=== PATIENT | female | born 1985 | race Caucasian/White ===

== ENCOUNTER → 2017-09-16 12:01 | Outpatient (CLI) | payer OTHER, SELFPAY ==
--- NOTE | 2017-09-16 12:06 | CT_ITS ---
CT abdomen pelvis wo con CLINICAL INDICATION: ITS.REASON: LLQ PAIN, HEMATURIA ORDERING PHYSICIAN: Nicholas An MD PATIENT AGE: 32 years COMPARISON: 11/26/2013 TECHNIQUE: Axial images obtained with sagittal and coronal reformats. PROCEDURE: Oral Contrast: None IV Contrast: None . FINDINGS: Patchy parenchymal density noted in the right middle lobe nonspecific. Prior cholecystectomy without ductal dilatation. The liver, spleen, adrenal glands, and pancreas have an unremarkable unenhanced CT appearance. There are bilateral nonobstructing renal calculi measuring up to 4 mm in the lower pole on the left and 3 mm in the lower pole on the right. No ureteral calculi or hydronephrosis. There are scattered small lymph nodes in the retroperitoneum and mesentery's nonspecific. No intestinal obstruction or free air. Prior appendectomy. No evidence of diverticulitis. No pelvic mass, abnormal fluid collection, or focal pelvic inflammatory change evident. No acute bony anomalies. IMPRESSION: 1. Nonobstructing bilateral renal calculi. 2. No acute finding in the abdomen or pelvis. 3. Nonspecific parenchymal opacity in the right middle lobe which could be due to an area of atelectasis or infiltrate versus chronic change
[2017-09-16 13:16] LABS: Free Thyroxine Index 3.1 ug/dL (5.93-13.13); T4 (Thyroxine) 10.7 ug/dl (4.7-13.3); Thyroid Stimulating Hormone 1.84 uIU/ml (0.358-3.740); Triiodothryronine (T3) Uptake 29 % (31-39)
== END ==
PROVIDERS: Nurse Practitioner Obstetrics & Gynecology; PCP Internal Medicine Adolescent Medicine; Visit Provider Internal Medicine Adolescent Medicine
DX: R10.32 Left lower quadrant pain (principal); R31.29 Other microscopic hematuria; R53.82 Chronic fatigue, unspecified; R63.5 Abnormal weight gain
CPT/HCPCS: 74176; 84436; 84443; 84479; 87086

== ENCOUNTER → 2017-09-27 08:14 | Outpatient (CLI) | payer OTHER, SELFPAY ==
[2017-09-27 09:01] LABS: Basophils % 0.3 % (0.1-2.0); Eosinophils # 0.1 K/mm3 (0.0-0.4); Eosinophils % 1.7 % (0.1-12.0); Hematocrit 47.6 % (37.0-47.0); Hemoglobin 15.8 g/dL (12.2-16.2); Lymphocytes # 1.9 K/mm3 (0.7-4.5); Lymphocytes % 26.1 K/mm3 (10-50); Mean Corpuscular HGB Conc 33.1 g/dL (31.8-35.4); Mean Corpuscular Hemoglobin 28.1 pg (27.0-31.2); Mean Corpuscular Volume 84.7 fl (81-99); Mean Platelet Volume 8.2 fl (7.4-10.4); Monocytes # 0.3 K/mm3 (0.1-1.0); Monocytes % 4.2 % (1.7-9.3); Neutrophils # 4.8 K/mm3 (1.8-7.8); Neutrophils % 67.7 % (37.0-80.0); Platelet Count 301 K/mm3 (142-424); Red Blood Count 5.62 M/mm3 (4.20-5.40); Red Cell Distribution Width 13.6 % (11.5-17.5); White Blood Count 7.1 K/mm3 (4.8-10.8)
[2017-09-27 12:54] LABS: Alanine Aminotransferase 24 U/L (12-78); Albumin Level 3.8 gm/dL (3.4-5.0); Albumin/Globulin Ratio 1.1 (1.1-1.8); Alkaline Phosphatase 69 U/L (46-116); Anion Gap 11.6 mEq/L (5-15); Aspartate Amino Transferase 14 U/L (15-37); Bilirubin,Total 0.4 mg/dL (0.2-1.0); Blood Urea Nitrogen 11 mg/dL (7-18); Calcium 9.6 mg/dL (8.5-10.1); Carbon Dioxide 28 mmol/L (21.0-32.0); Chloride 104 mmol/L (98-107); Creatinine,Serum 0.76 mg/dL (0.55-1.02); Estimated Glomerular Filt Rate 87 ml/min (>60); GFR (African American) 105 ML/MIN (>60); Globulin 3.4 gm/dl (1.3-3.2); Glucose 99 mg/dL (74-106); Potassium 4.6 mmoL/L (3.5-5.1); Sodium 139 mmol/L (136-145); Total Protein,Serum 7.2 gm/dL (6.4-8.2)
[2017-09-28 07:19] LABS: DHEA-Sulfate 57.4 ug/dL (84.8-378.0); Testosterone,Total 21 ng/dL (8-48)
[2017-09-29 08:50] LABS: LH 4.4 mIU/mL (.)
== END ==
PROVIDERS: PCP Internal Medicine Adolescent Medicine; Visit Provider Internal Medicine Adolescent Medicine
DX: R53.83 Other fatigue (principal)
CPT/HCPCS: 36415; 80053; 82626; 83001; 83002; 83498; 84403; 85025

== ENCOUNTER → 2017-10-19 10:37 | Outpatient (CLI) | payer OTHER, SELFPAY ==
--- NOTE | 2017-10-19 | NVE_ITS ---
Venous Exam Indications: 729.5 Pain in limb. IMPRESSIONS No evidence of deep or superficial vein thrombosis involving the left lower extremity Left lower extremity venous duplex evaluation. Doppler flow study including spectral analysis, color and chen scale imaging. Location: Vascular laboratory. Patient status: Inpatient. Tables: Venous flow and imaging: + +-------+ + Location Overall Flow properties + +-------+ + Left common femoral Patent Normal phasicity; spontaneous; normal augmentation; compressible + +-------+ + Left saphenofemoral junction Patent Compressible + +-------+ + Left profunda femoral Patent Compressible + +-------+ + Left femoral Patent Normal phasicity; spontaneous; normal augmentation; compressible + +-------+ + Left greater saphenous Patent Normal phasicity; spontaneous; normal augmentation; compressible + +-------+ + Left popliteal Patent Normal phasicity; spontaneous; normal augmentation; compressible + +-------+ + Left posterior tibial Patent Compressible + +-------+ + Left peroneal Patent Compressible + +-------+ + Left gastrocnemius Patent Compressible + +-------+ + Left soleal Patent Compressible + +-------+ + (Report amended ) Electronically signed by: Candelario Bonilla [id number]
== END ==
PROVIDERS: PCP Internal Medicine Adolescent Medicine; Visit Provider Internal Medicine Adolescent Medicine
DX: M79.605 Pain in left leg (principal)
CPT/HCPCS: 93971

== ENCOUNTER → 2019-08-09 11:10 | Outpatient (CLI) | payer OTHER, SELFPAY ==
[2019-08-09 11:34] LABS: Monoscreen (Rapid) Negative (Negative)
== END ==
PROVIDERS: Visit Provider Nurse Practitioner
DX: B27.90 Infectious mononucleosis, unspecified without complication (principal)
CPT/HCPCS: 36415; 86318

== ENCOUNTER → 2019-10-12 08:53 | Outpatient (CLI) | payer OTHER, SELFPAY ==
--- NOTE | 2019-10-12 08:53 | MM_ITS ---
PROCEDURE: MM DIG SCREENING MAMM BI W/CAD CLINICAL INDICATION: baseling mammogram There is a history of breast cancer in the patient's paternal grandmother and maternal grandmother both after menopause. COMPARISON: None, this is baseline screening exam TECHNIQUE: Standard CC and MLO images and 3D Tomosynthesis was obtained. R2 CAD reviewed. FINDINGS: There is a diffusely dense and heterogenic parenchymal pattern somewhat lessening the sensitivity of mammography. Findings are bilateral and symmetrical. Ortiz images are most helpful in this type of dense breast parenchyma and I see no suspicious abnormality in either breast. There are no suspicious microcalcifications. IMPRESSION: Diffusely dense parenchymal pattern with no suspicious lesions seen BI-RAD Category: 1 Negative FOLLOW-UP: 1YR 1 Year Follow-up in view of the family history of breast cancer (A letter has been sent to the patient regarding results of the study.) Dictated by: Dr. Lionel Giron MD 10/15/2019 11:[address] Lionel Giron MD in [place] 10/15/2019 11:21
== END ==
PROVIDERS: PCP Internal Medicine Adolescent Medicine; Visit Provider Nurse Practitioner Obstetrics & Gynecology
DX: Z12.31 Encounter for screening mammogram for malignant neoplasm of breast (principal); Z80.3 Family history of malignant neoplasm of breast
CPT/HCPCS: 77063; 77067

== ENCOUNTER → 2020-02-15 08:21 | Outpatient (CLI) | payer OTHER, SELFPAY ==
[2020-02-15 09:21] LABS: Hemoglobin A1C 5.5 % (4.0-6.0)
[2020-02-15 09:46] LABS: Alanine Aminotransferase 20 U/L (12-78); Albumin Level 4.3 g/dl (3.5-5.0); Albumin/Globulin Ratio 1.8 (1.1-1.8); Alkaline Phosphatase 66 U/L (38-126); Anion Gap 10.1 mEq/L (5-15); Aspartate Amino Transferase 23 U/L (14-36); Bilirubin,Total 0.6 mg/dl (0.2-1.3); Blood Urea Nitrogen 12 mg/dl (7-17); Calcium 9.8 mg/dl (8.4-10.2); Carbon Dioxide 31 mmol/L (22.0-30.0); Chloride 102 mmol/L (98-107); Chol/HDL Ratio 3.6 (1-3.5); Cholesterol 190 mg/dl (140-200); Estimated Glomerular Filt Rate 95 ml/min (>60); GFR (African American) 115 ML/MIN (>60); Globulin 2.4 g/dL (1.3-3.2); Glucose 112 mg/dl (74-100); HDL Cholesterol 53 mg/dl (40-60); Magnesium 1.9 mg/dl (1.6-2.3); Potassium 4.1 mmoL/L (3.5-5.1); Sodium 139 mmol/L (136-145); Total Protein,Serum 6.7 g/dl (6.3-8.2); Triglycerides 109 mg/dl (30-150); VLDL Cholesterol 22 mg/dL (0-40)
[2020-02-15 09:57] LABS: Direct LDL Cholesterol 122.06 mg/dL (100-129)
[2020-02-15 10:04] LABS: Free Thyroxine Index 1.9 ug/dL (5.93-13.13); T4 (Thyroxine) 5.6 ug/dl (5.53-11.0); Triiodothryronine (T3) Uptake 34 % (23.5-40.5)
[2020-02-15 10:17] LABS: Thyroid Stimulating Hormone 1.54 uIU/mL (0.465-4.68)
[2020-02-16 09:28] LABS: Vitamin B12 592 pg/mL (232-1245)
== END ==
PROVIDERS: Visit Provider Internal Medicine Adolescent Medicine
DX: E78.5 Hyperlipidemia, unspecified (principal); K58.1 Irritable bowel syndrome with constipation; R73.9 Hyperglycemia, unspecified
CPT/HCPCS: 36415; 80053; 80061; 82607; 83036; 83735; 84436; 84443; 84479

== ENCOUNTER → 2020-04-07 14:42 | Outpatient (CLI) | payer OTHER, SELFPAY ==
--- NOTE | 2020-04-07 14:46 | CT_ITS ---
PROCEDURE: CT ABDOMEN PELVIS WO CON CLINICAL INDICATION: HEMATURIA, UNSPECIFIED TYPE Lower abdominal pain COMPARISON: CT ABDOMEN PELVIS W CON from 04/28/2019 TECHNIQUE: Axial images obtained with sagittal and coronal reformats. All CT scans at the facility use one or more dose reduction, viz: automated exposure control, ma/kV adjustment per patient size (including targeted exams where dose is matched to indication, i.e. head), or iterative reconstruction technique. FINDINGS: LOWER THORAX: There are mild atelectatic or fibrotic changes in the right middle lobe ABDOMEN & PELVIS: The liver has an unremarkable unenhanced appearance. There has been a prior cholecystectomy. The spleen, adrenal glands, and pancreas have an unremarkable appearance. There is some minimal increased density of the peripancreatic fat at the region of the head of the pancreas. This however is not significantly changed and may represent sequela from chronic inflammation. There are few small lymph nodes in the mesenteric axis. There are multiple bilateral renal calculi measuring up to 3 mm in the lower pole on the left and 3 mm in the mid polar region on the right. A 3 mm stone is present in the distal right ureter just proximal to the UVJ. There is only minimal ectasia of the right ureter. No ureteral calculi evident on the left. Given history of prior appendectomy. There is an IUD in place. No pelvic mass or abnormal fluid collection. No acute bony anomalies IMPRESSION: 3 mm right distal ureteral stone with minimal ectasia of the right renal collecting system. Bilateral nephrolithiasis Dictated by: Candelario Bonilla MD 04/07/2020 16:17 Electronically signed by Candelario Bonilla MD in [place] 04/07/2020 16:17
== END ==
PROVIDERS: PCP Internal Medicine Adolescent Medicine; Visit Provider Nurse Practitioner Family
DX: R31.9 Hematuria, unspecified (principal)
CPT/HCPCS: 74176

== ENCOUNTER → 2020-04-09 13:02 | Outpatient (CLI) | payer OTHER, SELFPAY ==
[2020-04-29 09:38] LABS: Size 3X3
[2020-04-29 09:39] LABS: Composition PERCENTAGE
[2020-05-02 18:55] LABS: Specimen Type NOT PROVIDED
[2020-05-02 18:56] LABS: Ca oxalate dihydrate 10
[2020-05-02 19:00] LABS: Photo TO FOLLOW
== END ==
PROVIDERS: Visit Provider Urology
DX: N20.0 Calculus of kidney (principal)
CPT/HCPCS: 82370

== ENCOUNTER 2020-05-09 20:48 | Emergency (ER) | payer OTHER, SELFPAY ==
[2020-05-09 20:48] VITALS: BP 153/90; PULSE 80; RESP 17; O2SAT 98; BMI 28.1
--- NOTE | 2020-05-09 20:56 | [facility].EDTRAUMA ---
ED Disposition Clinical Impression: Liver laceration Qualifiers: Encounter type: initial encounter Qualified Code(s): S36.113A - Laceration of liver, unspecified degree, initial encounter Ribs, multiple fractures Qualifiers: Encounter type: initial encounter Fracture type: closed Laterality: right Qualified Code(s): S22.41XA - Multiple fractures of ribs, right side, initial encounter for closed fracture Left wrist fracture Qualifiers: Encounter type: initial encounter Fracture type: closed Qualified Code(s): S62.102A - Fracture of unspecified carpal bone, left wrist, initial encounter for closed fracture Disposition: Xfer Short-Term Hosp Condition on Discharge: Fair Referrals: Provider,Referral, MD [Primary Care Provider] - Forms: Transfer Record - ED - Critical Care Critical Care Time: No Attestation: On 05/09/20, the high probability of a clinically significant, sudden or life threatening deterioration of the following system(s) required my full and direct attention, intervention and personal management. The time I documented below is in addition to time spent performing reported procedures but includes the following listed in this critical care notation. Medical Decision Making - Medical Records Medical records reviewed: Yes: I reviewed the patient's medical records. - Gagandeep Inquiry Pt receiving controlled substance: Yes Gagandeep was queried for this patient: Yes Reference #:: [id number] Risks and benefits of using a controlled substance: were not discussed with pt by me Comment: 0 rxs. Vital Signs: 05/09/20 20:48 05/09/20 21:27 05/09/20 23:40 Temperature Temperature Source Pulse Rate Pulse Rate [Left Radial] 80 71 69 Respiratory Rate 17 18 16 Blood Pressure Blood Pressure [Right Arm] 153/90 H 134/86 133/80 Blood Pressure Mean [Right Arm] 111 102 97 Blood Pressure Source Blood Pressure Source [Right Arm] Automatic Cuff Blood Pressure Position Blood Pressure Position [Right Arm] Sitting 02 Sat by Pulse Oximetry 98 98 99 Oxygen Delivery Method Room Air Room Air 05/09/20 23:56 Temperature 98.2 F Temperature Source Oral Pulse Rate 87 Pulse Rate [Left Radial] Respiratory Rate 16 Blood Pressure 133/80 Blood Pressure [Right Arm] Blood Pressure Mean [Right Arm] Blood Pressure Source Automatic Cuff Blood Pressure Source [Right Arm] Blood Pressure Position Sitting Blood Pressure Position [Right Arm] 02 Sat by Pulse Oximetry Oxygen Delivery Method Room Air - Lab Data Lab results reviewed: Yes: I reviewed the patient's lab results. Lab Results 05/09/20 21:10: WBC 9.9, RBC 4.84, Hgb 14.5, Hct 41.3, MCV 85.4, MCH 30.0, MCHC 35.1, RDW 13.6, Plt Count 234, MPV 9.2, Neut % (Auto) 82.5 H, Lymph % (Auto) 12.5, Wright % (Auto) 3.7, Eos % (Auto) 1.0, Baso % (Auto) 0.3, Neut # (Auto) 8.2 H, Lymph # (Auto) 1.2, Wright # (Auto) 0.4, Eos # (Auto) 0.1, Baso # (Auto) 0.0 05/09/20 21:10: Sodium 139, Potassium 4.2, Chloride 105, Carbon Dioxide 26, Anion Gap 12.2, BUN 15, Creatinine 0.70, Estimated Creat Clear 142, Estimated GFR 94, Est GFR ( Amer) 114, Glucose 123 H, Calcium 10.0, Total Bilirubin 0.4, AST 327 H*, ALT 248 H, Alkaline Phosphatase 68, Total Protein 7.0, Albumin 4.4, Globulin 2.6, Albumin/Globulin Ratio 1.7 05/09/20 21:10: Serum HCG, Qual Negative Result diagrams: 05/09/20 21:10 05/09/20 21:10 Orders (Tests/Meds): ED MEDICATIONS Discontinued Medications Generic Name Dose Route Start Last Admin Trade Name Johnq PRN Reason Stop Dose Admin Sodium Chloride 1,000 mls @ 999 mls/hr 05/09/20 23:45 Sod Chlor 0.9% 1000ml Bag IV 05/10/20 00:45 .Q1H1M JACQUI Lactated Ringer's 1,000 mls @ 999 mls/hr 05/09/20 23:45 Lactated Ringer's 1000 Ml Bag IV 05/10/20 00:45 .Q1H1M JACQUI Ioversol 100 ml 05/09/20 23:26 05/09/20 23:27 Rad-Optiray 350 100ml Vial IV 05/09/20 23:27 100 ml ONCE ONE Administration Protocol Morphine Sulfate 4 mg
--- NOTE | 2020-05-09 20:57 | CT_ITS ---
PROCEDURE: CT ABDOMEN PELVIS W CON CLINICAL INDICATION: trauma Blunt trauma COMPARISON: CT CT ABDOMEN PELVIS WO CON from 04/07/[address] ANGIO CHEST from 05/09/2020 TECHNIQUE: IV Contrast: 75ML OPTIRAY 350 Oral Contrast None Axial images obtained with sagittal and coronal reformats. All CT scans at the facility use one or more dose reduction, viz: automated exposure control, ma/kV adjustment per patient size (including targeted exams where dose is matched to indication, i.e. head), or iterative reconstruction technique. FINDINGS: There is a focal hypoattenuation in the posterior lateral right hepatic lobe peripherally at 1.5 cm with an additional subtle hypoattenuation anterior to this at 1 cm and an additional area of decreased attenuation within the anterior segment of the right hepatic lobe at 2.3 cm. These areas are subtle but may represent hepatic lacerations. There is a minimal amount of perihepatic fluid. Minimal amount of fluid is present in the right pericolic gutter. There has been a prior cholecystectomy with biliary ectasia noted.. The spleen, adrenal glands, and pancreas are unremarkable. There are nonobstructing bilateral renal calculi which are noted on the unenhanced CT scan of the lumbar spine there are obscured by contrast on this exam. No hydronephrosis. There are small retroperitoneal lymph nodes. No intestinal obstruction or free air. There is a small umbilical hernia containing fat. There is a mild amount of retained colonic feces. There is given history of appendectomy. There is an IUD in place. There is a small left ovarian cyst with enhancing rim with a cyst measuring 1.3 cm. There are fractures of the right 10th and 11th ribs with associated soft tissue contusion along the lower back on the right IMPRESSION: 1. Suspected right hepatic lacerations with minimal perihepatic fluid. 2. Right 10th and 11th rib fractures with associated contusion Dictated by: Candelario Bonilla MD 05/10/2020 07:30 Candelario Bonilla MD in [place] 05/10/2020 07:30
--- NOTE | 2020-05-09 20:57 | CT_ITS ---
PROCEDURE: CT ANGIO CHEST CLINCIAL INDICATION: trauma Blunt trauma with injury and pain, contusion/abrasion or hematoma following injury COMPARISON: [facility] CT angio chest from 03/12/2018 TECHNIQUE: IV Contrast: 70ML OPTIRAY 350 Axial images obtained with sagittal and coronal reformats. All CT scans at the facility use one or more dose reduction, viz: automated exposure control, ma/kV adjustment per patient size (including targeted exams where dose is matched to indication, i.e. head), or iterative reconstruction technique. FINDINGS: HEART AND MEDIASTINAL STRUCTURES: Unremarkable. LUNGS AND PLEURAL SPACES: There are atelectatic changes in the lower lobes and right middle lobe. There are scattered small calcified granulomas in the right lower lobe. Small nodules may be obscured with the atelectasis. No evidence of pneumothorax. BONY STRUCTURES: There is a mildly displaced right 10th rib fracture posteriorly and a nondisplaced 11th rib fracture posteriorly UPPER ABDOMEN: See abdomen report ADDITIONAL FINDINGS: Soft tissue contusion noted in the lower chest posteriorly on the right IMPRESSION: Right 10th and 11th rib fractures posteriorly with overlying soft tissue contusion and bilateral atelectatic changes. Dictated by: Candelario Bonilla MD 05/10/2020 07:06 Candelario Bonilla MD in [place] 05/10/2020 07:06
--- NOTE | 2020-05-09 20:57 | CT_ITS ---
PROCEDURE: CT LUMBAR SPINE WO CON CLINICAL HISTORY: trauma Posttraumatic pain, back pain following injury COMPARISON: No exams were available for comparison TECHNIQUE: Axial images obtained with sagittal and coronal reformats. All CT scans at the facility use one or more dose reduction, viz: automated exposure control, ma/kV adjustment per patient size (including targeted exams where dose is matched to indication, i.e. head), or iterative reconstruction technique. FINDINGS: Normal alignment. No fracture or dislocation. The disc spaces are well preserved. No significant degenerative change. No lytic lesions apparent. There is some sclerosis of the SI joints on both sides inferiorly change. Multiple bilateral nonobstructing renal calculi. There is an IUD in place a. there are numerous small retroperitoneal lymph nodes. IMPRESSION: No acute fracture. Dictated by: Candelario Bonilla MD 05/10/2020 07:21 Candelario Bonilla MD in [place] 05/10/2020 07:21
--- NOTE | 2020-05-09 20:57 | CT_ITS ---
PROCEDURE: CT CERVICAL SPINE WO CON CLINICAL INDICATION: trauma Neck injury with pain, contusion/abrasion or hematoma, cervical sprain/strain the COMPARISON: CT CT ANGIO CHEST from 05/09/2020 TECHNIQUE: Axial images obtained with sagittal and coronal reformats. All CT scans at the facility use one or more dose reduction, viz: automated exposure control, ma/kV adjustment per patient size (including targeted exams where dose is matched to indication, i.e. head), or iterative reconstruction technique. Axial spiral CT scanning performed of the cervical spine beginning at the base of the skull and continuing to the upper T-spine. 3-D multiplanar reconstruction with 3-D manipulation of volumetric data set in image rendering was completed by the radiologist and/or technologist with the supervision of the radiologist on independent workstation. FINDINGS: No fracture nor subluxation is evident. Normal prevertebral soft tissues. Facets, neural foramen and vertebral bodies intact and unremarkable. Normal C1/C2 relationships. Airspace opacities in the apices right greater than left which may be due to dependent changes or atelectasis not duplicated on the chest CT. There is straightening/reversal of the normal lordosis which may be due to patient positioning or muscle spasm.. There is some scattered small cervical lymph nodes which are nonspecific. IMPRESSION: Cervical spine intact with no fracture nor subluxation. Dictated by: Candelario Bonilla MD 05/10/2020 07:10 Candelario Bonilla MD in [place] 05/10/2020 07:10
--- NOTE | 2020-05-09 20:57 | CT_ITS ---
PROCEDURE: CT THORACIC SPINE WO CON CLINICAL HISTORY: trauma Posttraumatic pain, central back pain COMPARISON: CT AGCHEST CT angio chest from 03/12/[address] ANGIO CHEST from 05/09/2020 TECHNIQUE: Axial images obtained with sagittal and coronal reformats. All CT scans at the facility use one or more dose reduction, viz: automated exposure control, ma/kV adjustment per patient size (including targeted exams where dose is matched to indication, i.e. head), or iterative reconstruction technique. FINDINGS: There is normal alignment. No acute fracture or dislocation is evident. There is minimal wedge contour of T6 which is chronic unchanged from an older chest CT of 03/12/2018. T1-T2 and T3 are not included on this study however, those images were included on the chest CT of the same setting and have an unremarkable appearance. There is a nondisplaced fracture of T11 and a mildly displaced fracture of T10. Atelectatic changes are present in the dependent portions of the lungs. Nonobstructive bilateral nephrolithiasis. IMPRESSION: No acute thoracic spine fracture. Right 11th and 10th rib fractures Dictated by: Candelario Bonilla MD 05/10/2020 07:16 Candelario Bonilla MD in [place] 05/10/2020 07:16
--- NOTE | 2020-05-09 20:58 | XR_ITS ---
PROCEDURE: XR WRIST LT MIN 3V CLINICAL INDICATION: trauma Posttraumatic pain COMPARISON: No exams were available for comparison FINDINGS: There is a comminuted inverted T shape fracture involving the distal radius with a transverse component 1 cm proximal to the articular surface and longitudinal component extending through the central aspect of the distal radius. There is a 7 mm lateral displacement of the lateral fracture fragment. There is dorsal displacement also of the fracture fragments by 5 mm. There is minimal dorsal inclination of the distal fracture fragments. There is a small avulsion fracture involving the tip of the ulnar styloid IMPRESSION: Comminuted distal radial fracture mildly displaced as described above with tiny avulsion fracture of the ulnar styloid Dictated by: Candelario Bonilla MD 05/10/2020 06:29 Candelario Bonilla MD in [place] 05/10/2020 06:29
--- NOTE | 2020-05-09 20:58 | XR_ITS ---
PROCEDURE: XR CHEST AP CLINICAL HISTORY: traum Posttraumatic pain, trauma protocol COMPARISON: CR CXR CHEST(2 VIEWS-NOT PORTABLE) from 12/13/[address] ANGIO CHEST from 05/09/2020 FINDINGS: There is mild cardiomegaly without failure. The lungs are clear without infiltrates, suspicious nodules, or pleural effusions. A faint curvilinear density is noted in the left upper lobe and may be due to artifact with something upon the patient. No acute bony finding. IMPRESSION: Mild cardiomegaly otherwise negative Dictated by: Candelario Bonilla MD 05/10/2020 06:32 Candelario Bonilla MD in [place] 05/10/2020 06:32
--- NOTE | 2020-05-09 20:58 | XR_ITS ---
PROCEDURE: XR PELVIS 1-2V CLINICAL INDICATION: trauma Posttraumatic pain, trauma protocol COMPARISON: No exams were available for comparison TECHNIQUE: XR Pelvis AP View FINDINGS: No fracture or dislocation is evident. No significant degenerative change. Contrast is present in the urinary bladder and ureters from the recent CT. No evidence of contrast extravasation. There is an IUD in place. Small opacity noted in the right lower quadrant and may be due to overlying artifact. IMPRESSION: No acute findings. Dictated by: Candelario Bonilla MD 05/10/2020 06:33 Candelario Bonilla MD in [place] 05/10/2020 06:33
--- NOTE | 2020-05-09 20:59 | XR_ITS ---
PROCEDURE: XR SHOULDER RT MIN 2V CLINICAL INDICATION: trauma Posttraumatic pain COMPARISON: No exams were available for comparison FINDINGS: No fracture or dislocation. No lytic or blastic change. There is normal mineralization. The joint spaces are well-preserved. No significant degenerative/arthritic changes. No erosive changes evident. Other findings:None. IMPRESSION: No acute findings. Dictated by: Candelario Bonilla MD 05/10/2020 06:27 Candelario Bonilla MD in [place] 05/10/2020 06:27
[2020-05-09 21:17] LABS: Basophils % 0.3 % (0.1-2.0); Eosinophils # 0.1 K/mm3 (0.0-0.4); Hematocrit 41.3 % (37.0-47.0); Hemoglobin 14.5 g/dL (12.2-16.2); Lymphocytes # 1.2 K/mm3 (0.7-4.5); Lymphocytes % 12.5 % (10-50); Mean Corpuscular HGB Conc 35.1 g/dL (31.8-35.4); Mean Corpuscular Volume 85.4 fl (81-99); Mean Platelet Volume 9.2 fl (7.4-10.4); Monocytes # 0.4 K/mm3 (0.1-1.0); Monocytes % 3.7 % (1.7-9.3); Neutrophils # 8.2 K/mm3 (1.8-7.8); Neutrophils % 82.5 % (37.0-80.0); Platelet Count 234 K/mm3 (142-424); Red Blood Count 4.84 M/mm3 (4.20-5.40); Red Cell Distribution Width 13.6 % (11.5-17.5); White Blood Count 9.9 K/mm3 (4.8-10.8)
[2020-05-09 21:21] LABS: Chloride 105 mmol/L (98-107); Potassium 4.2 mmoL/L (3.5-5.1); Sodium 139 mmol/L (136-145)
[2020-05-09 21:23] LABS: Alanine Aminotransferase 248 U/L (12-78); Alkaline Phosphatase 68 U/L (38-126); Aspartate Amino Transferase 327 U/L (14-36); Bilirubin,Total 0.4 mg/dl (0.2-1.3); Blood Urea Nitrogen 15 mg/dl (7-17); Creatinine Clearance Estimated 142 mL/min (50-200); Estimated Glomerular Filt Rate 94 ml/min (>60); GFR (African American) 114 ML/MIN (>60)
[2020-05-09 21:24] LABS: Albumin Level 4.4 g/dl (3.5-5.0); Albumin/Globulin Ratio 1.7 (1.1-1.8); Anion Gap 12.2 mEq/L (5-15); Carbon Dioxide 26 mmol/L (22.0-30.0); Globulin 2.6 g/dL (1.3-3.2); Glucose 123 mg/dl (74-100)
[2020-05-09 21:27] VITALS: BP 134/86; PULSE 71; RESP 18; O2SAT 98
[2020-05-09 21:30] LABS: HCG Qualitative, Serum Negative (Negative)
--- NOTE | 2020-05-09 22:47 | PC.NURSE ---
speaking with [facility]
--- NOTE | 2020-05-09 22:48 | PC.NURSE ---
ATTENDING PROVIDER ON THE PHONE WITH [facility] AT THIS TIME
--- NOTE | 2020-05-09 22:53 | PC.NURSE ---
speaking to Dr Jules at [facility]
--- NOTE | 2020-05-09 22:55 | PC.NURSE ---
DR. CABALLERO HAS ACCEPTED PATIENT FOR TRAUMA TRANSFER PER ATTENDING PROVIDER
--- NOTE | 2020-05-09 22:55 | PC.NURSE ---
Dr Murillo accepted pt at [facility]
--- NOTE | 2020-05-09 23:04 | PC.NURSE ---
at bedside and removed c-collar
--- NOTE | 2020-05-09 23:05 | PC.NURSE ---
Calling report to [facility]
--- NOTE | 2020-05-09 23:07 | PC.NURSE ---
REPORT GIVEN TO FLORA CAST AT [facility]
--- NOTE | 2020-05-09 23:15 | PC.NURSE ---
MULTIPLE ATTEMPTS TO CONTACT [facility] FOR TRANSPORT DISK. UNABLE TO TRANSPORT AT THIS ITME
--- NOTE | 2020-05-09 23:29 | PC.NURSE ---
Notified [facility] of transfer
[2020-05-09 23:40] VITALS: BP 133/80; PULSE 69; RESP 16; O2SAT 99
[2020-05-09 23:56] VITALS: BP 133/80; PULSE 87; RESP 16; TEMP 36.8; O2SAT 98
[2020-05-14 09:54] LABS: POC Glucose,Bedside 101 (70-110)
== END 2020-05-09 23:58 | disposition short-term general hospital (02) ==
PROVIDERS: Emergency Provider Emergency Medicine
DX: S36.113A Laceration of liver, unspecified degree, initial encounter (principal); S22.41XA Multiple fractures of ribs, right side, initial encounter for closed fracture; S62.102A Fracture of unspecified carpal bone, left wrist, initial encounter for closed fracture; E11.9 Type 2 diabetes mellitus without complications; I10 Essential (primary) hypertension; G43.709 Chronic migraine without aura, not intractable, without status migrainosus; R56.9 Unspecified convulsions; Z90.49 Acquired absence of other specified parts of digestive tract; I34.1 Nonrheumatic mitral (valve) prolapse; W55.22XA Struck by cow, initial encounter; Y92.73 Farm field as the place of occurrence of the external cause
CPT/HCPCS: 71045; 71275; 72125; 72128; 72131; 72170; 73030; 73110; 74177; 80053; 82962; 84703; 85025; 96365; 96375; 96376; 99284; J2405; Q9967

== ENCOUNTER → 2020-05-16 10:50 | Outpatient (CLI) | payer OTHER, SELFPAY ==
[2020-05-17 13:23] LABS: Covid-19 Nasal PCR Sendout Lex Not Detected
== END ==
PROVIDERS: PCP Internal Medicine Adolescent Medicine; Visit Provider Orthopaedic Surgery
DX: Z03.818 Encounter for observation for suspected exposure to other biological agents ruled out (principal); S52.502A Unspecified fracture of the lower end of left radius, initial encounter for closed fracture
CPT/HCPCS: U0004

== ENCOUNTER 2021-01-05 16:35 | Emergency (ER) | payer OTHER, SELFPAY ==
[2021-01-05 16:57] VITALS: BP 129/85; PULSE 68; RESP 14; TEMP 36.6; O2SAT 99; BMI 28.1
--- NOTE | 2021-01-05 17:24 | HMH.EDUTC ---
[facility] [place] Clinical Impression: Laryngitis, Bronchitis Pharyngitis Qualifiers: Pharyngitis/tonsillitis etiology: unspecified etiology Qualified Code(s): J02.9 - Acute pharyngitis, unspecified Disposition: Home, Self-Care Condition on Discharge: Good Instructions: DI for Acute Bronchitis, DI for Laryngitis Additional Instructions: Drink plenty of fluids. Take tylenol or ibuprofen for pain or fever. Take the medications as directed. Follow up with your regular doctor. GO TO THE ER FOR ANY WORSENING SYMPTOMS Prescriptions: Benzonatate [Tessalon Perle 100mg Cap] 100 mg PO TIDP PRN #30 cap PRN Reason: Cough Transmission Status: Received by [facility] Azithromycin [Z-Rodger 250mg Tab*] 250 mg PO UD DOSE PK #6 tab Transmission Status: Re[facility] by [facility] Referrals: Nicholas An MD [Primary Care Provider] - Forms: Work/School Release Time of Disposition: 17:32 Medical Decision Making - Medical Records Medical records reviewed: No: I reviewed the patient's medical records. - Gagandeep Inquiry Pt receiving controlled substance: No Vital Signs: 01/05/21 16:57 01/05/21 17:38 Temperature 97.9 F 98 F Temperature Source Tympanic Pulse Rate 71 Pulse Rate [Right] 68 Respiratory Rate 14 18 Blood Pressure 119/80 Blood Pressure [Right Arm] 129/85 Blood Pressure Mean [Right Arm] 99 Blood Pressure Source [Right Arm] Automatic Cuff Blood Pressure Position [Right Arm] Sitting 02 Sat by Pulse Oximetry 99 - Lab Data Lab Results 01/05/21 17:02: Strep Scn Rapid Clinic Negative Orders (Tests/Meds): ED MEDICATIONS Discontinued Medications Generic Name Dose Route Start Last Admin Trade Name Freq PRN Reason Stop Dose Admin Ceftriaxone Sodium 1 gm 01/05/21 17:24 01/05/21 17:37 Ceftriaxone 1gm Vial IM 01/05/21 17:25 1 gm ONCE ONE Administration Protocol Lidocaine HCl 0 ml 01/05/21 17:24 01/05/21 17:38 Lidocaine 1% 5ml Pf Vial IM 01/05/21 17:25 2 ml ONCE ONE Administration Methylprednisolone Sodium Succinate 125 mg 01/05/21 17:24 01/05/21 17:37 Methylprednisolone Sod Succ 125mg Vial IM 01/05/21 17:25 125 mg ONCE ONE Administration ORDERS Category Date Time Status Strep Screen Confirmation Stat Micro 01/05/21 17:02 Received [facility] [place] - General Stated complaint: lost voice cough congestion Time Seen by Provider: 01/05/21 17:24 Mode of Arrival: Ambulatory Source of Information: Patient Limitations: No Limitations Description of Symptoms (Recalled from Triage Doc. by RN): loss of voice, SWARTZ and congestion HEENT Symptoms (Recalled from RN notes): Yes (SWARTZ, loss of voice, and congestion) Resp Symptoms (Recalled from RN notes): No Skin Symptoms (Recalled from RN notes): No MS Symptoms (Recalled from RN notes): No Functional Status (Recalled from RN notes): na - History of Present Illness Provider Complaint: She states that for the past 2 days she has had cough, voice hoarsness and feeling bad. - Related Data Home Medications Medication Instructions Recorded Confirmed levocetirizine 5 mg tablet 5 mg PO QHS 09/19/17 05/09/20 montelukast 10 mg tablet 10 mg PO QHS 09/19/17 05/09/20 Aspirin 81 mg PO DAILY 03/12/18 05/09/20 verapamil 120 mg 24 hr 120 mg PO DAILY 30 Days #30 03/22/18 05/09/20 capsule,extended release levonorgestrel 20 mcg/24 hours (6 1 dose INTRAUTERI CONT each 05/15/18 05/09/20 yrs) 52 mg intrauterine device Previous Rx's Medication Instructions Recorded citalopram 20 mg tablet 20 mg PO DAILY #90 tab 07/10/19 Azithromycin [Z-Rodger 250mg Tab*] 250 mg PO UD DOSE PK #6 tab 01/05/21 Benzonatate [Tessalon Perle 100mg 100 mg PO TIDP PRN #30 cap 01/05/21 Cap] Allergies Allergy/AdvReac Type Severity Reaction Status Date / Time No Known Allergies Allergy Verified 01/05/21 17:01 - Worker's Comp Is this a Worker's Comp case?: No [facility] History - Hepatitis A Screen Drug
[2021-01-05 17:31] LABS: UTC Strep Screen (Rapid) Negative (Negative)
[2021-01-05 17:38] VITALS: BP 119/80; PULSE 71; RESP 18; TEMP 36.6
== END 2021-01-05 17:41 | disposition home or self-care (01) ==
PROVIDERS: Emergency Provider Nurse Practitioner Family; PCP Internal Medicine Adolescent Medicine
DX: J20.9 Acute bronchitis, unspecified (principal); J04.0 Acute laryngitis; J02.9 Acute pharyngitis, unspecified; I25.10 Atherosclerotic heart disease of native coronary artery without angina pectoris; I10 Essential (primary) hypertension; Z79.899 Other long term (current) drug therapy
CPT/HCPCS: 87880; 96372; 99202; G0463

== ENCOUNTER → 2021-05-25 16:35 | Outpatient (CLI) | payer OTHER, SELFPAY ==
--- NOTE | 2021-05-25 16:40 | XR_ITS ---
PROCEDURE: XR CHEST 2V CLINICAL HISTORY: COVID-19 (TESTED POSTIVE ON , RETURNED TO WORK ON ) COMPARISON: CR CXR CHEST(2 VIEWS-NOT PORTABLE) from 12/13/2016 CR XR CHEST AP from 05/09/[address] ANGIO CHEST from 05/09/2020 FINDINGS: The cardiomediastinal silhouette and pulmonary vascularity are within normal limits. The lungs are clear without infiltrates, suspicious nodules, or pleural effusions. No acute bony abnormalities. IMPRESSION: No acute findings. Dictated by: Candelario Bonilla MD 05/25/2021 17:30 Candelario Bonilla MD in [place] 05/25/2021 17:30
== END ==
PROVIDERS: PCP Internal Medicine Adolescent Medicine; Visit Provider Internal Medicine Adolescent Medicine
DX: U07.1 COVID-19 (principal)
CPT/HCPCS: 71046

== ENCOUNTER → 2021-08-03 13:08 | Outpatient (CLI) | payer OTHER, SELFPAY ==
--- NOTE | 2021-08-03 13:13 | XR_ITS ---
PROCEDURE: XR KUB CLINICAL INDICATION: kidney stone COMPARISON: No exams were available for comparison FINDINGS: 3 mm stone is present along the lower pole of the left kidney. No obvious ureteral calculi. IUD is in place. Minimal degenerative changes of the hips. IMPRESSION: Left nephrolithiasis Dictated by: Candelario Bonilla MD 08/03/2021 16:13 Candelario Bonilla MD in [place] 08/03/2021 16:13
== END ==
PROVIDERS: PCP Internal Medicine Adolescent Medicine; Visit Provider Urology
DX: N20.0 Calculus of kidney (principal)
CPT/HCPCS: 74018

== ENCOUNTER → 2021-10-19 14:33 | Outpatient (CLI) | payer OTHER, SELFPAY ==
[2021-10-19 16:03] LABS: Adenovirus,PCR Not Detected (NotDetected); Bordetella Pertussis Not Detected (NotDetected); Chlamydophila Pneumoniae, PCR Not Detected (NotDetected); Coronavirus 19, PCR Not Detected (NotDetected); Coronavirus 229E Not Detected (NotDetected); Coronavirus NL63 Not Detected (NotDetected); Coronovirus HKU1,PCR Not Detected (NotDetected); Human Metapneumovirus Not Detected (NotDetected); Influenza A, PCR Not Detected (NotDetected); Influenza AH1, 2009 Not Detected (NotDetected); Influenza AH1, PCR Not Detected (NotDetected); Influenza AH3,PCR Not Detected (NotDetected); Influenza B, PCR Not Detected (NotDetected); Mycoplasma Pneumoniae, PCR Not Detected (NotDetected); Parainfluenza 1, PCR Not Detected (NotDetected); Parainfluenza 2, PCR Not Detected (NotDetected); Parainfluenza 3, PCR Not Detected (NotDetected); Parainfluenza 4, PCR Not Detected (NotDetected); Respiratory Syncytial Virus Not Detected (NotDetected); Rhinovirus/Enterovirus Not Detected (NotDetected)
[2021-10-19 18:28] LABS: Coronavirus OC43 Detected (NotDetected)
== END ==
PROVIDERS: PCP Internal Medicine Adolescent Medicine; Visit Provider Nurse Practitioner
DX: U07.1 COVID-19 (principal)
CPT/HCPCS: 87581; 87632; 87798; C9803; U0003; U0005

== ENCOUNTER → 2021-10-26 13:47 | Outpatient (CLI) | payer OTHER, SELFPAY | PROVIDERS: Visit Provider Nurse Practitioner Obstetrics & Gynecology | DX: Z01.419 Encounter for gynecological examination (general) (routine) without abnormal findings (principal); Z80.3 Family history of malignant neoplasm of breast | CPT/HCPCS: 36415 ==

== ENCOUNTER → 2021-10-27 11:00 | Outpatient (CLI) | payer OTHER, SELFPAY ==
--- NOTE | 2021-10-27 11:00 | MM_ITS ---
PROCEDURE INFORMATION: Exam: MG Bilateral Screening 3D Mammography Exam date and time: 10/27/2021 11:00 AM Age: 36 years old Clinical indication: Screening mammogram. Of note, on the tech notes in PACS, patient reportedly feels a palpable lump/thickness under the left nipple. 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 Family history of breast carcinoma. TECHNIQUE: Imaging protocol: Bilateral Screening tomosynthesis and 2D mammography including computer-aided detection (CAD) when performed. COMPARISON: 1. MG MM DIG SCREENING MAMM BI W/CAD 10/12/2019 9:04 AM 2. BL US BREAST-LT COMPLETE W/AXILLA 03/16/2017 10:50 AM FINDINGS: MAMMOGRAPHY: Breast composition: The breasts are heterogeneously dense, which may obscure small masses. Mass: No suspicious masses. No definite suspicious mass in the lower retroareolar left breast to correlate with the patient's palpable area of concern however evaluation is limited on this screening exam. Architectural distortion: No suspicious distortion. Calcifications: No suspicious calcifications. Asymmetric density: None. Skin thickening: None. Axillary adenopathy: None. IMPRESSION: No definite suspicious mass in the lower retroareolar left breast to correlate with the patient's palpable area of concern, however evaluation is limited on this screening exam. Recommend targeted ultrasound of the left breast for complete evaluation of the palpable lump. Please note, biopsy of a clinically suspicious finding on physical exam should not be delayed on the basis of a negative mammogram or ultrasound report. Such findings should be managed on clinical grounds. No definite mammographic evidence of malignancy in either breast. ASSESSMENT: BI-RADS Category 0: Incomplete- Need Additional Imaging Evaluation and/or Prior Mammograms for Comparison
== END ==
PROVIDERS: PCP Internal Medicine Adolescent Medicine; Visit Provider Nurse Practitioner Obstetrics & Gynecology
DX: N60.11 Diffuse cystic mastopathy of right breast (principal); N60.12 Diffuse cystic mastopathy of left breast; Z12.31 Encounter for screening mammogram for malignant neoplasm of breast; Z80.3 Family history of malignant neoplasm of breast
CPT/HCPCS: 77063; 77067

== ENCOUNTER → 2021-11-03 14:58 | Outpatient (CLI) | payer OTHER, SELFPAY ==
--- NOTE | 2021-11-03 14:58 | US_ITS ---
PROCEDURE INFORMATION: Exam: US Left Breast, Complete Exam date and time: 11/03/2021 2:58 PM Age: 36 years old Clinical indication: Mass, lump, or swelling; Left; Additional info: Abnormal xmg TECHNIQUE: Imaging protocol: Complete ultrasound of all four quadrants of the Left breast and the retroareolar regions, including ultrasound of the axilla when performed. COMPARISON: No relevant prior studies available. FINDINGS: Breast: High resolution sonography of the LEFT breast is unremarkable. No discrete mass or fluid collection. Normal appearing axillary lymph nodes. IMPRESSION: No discrete cystic or solid mass in the LEFT breast at the site of palpable abnormality. ASSESSMENT: BI-RADS 1: Negative: There is nothing to comment on (likelihood of cancer essentially 0%)
== END ==
PROVIDERS: PCP Internal Medicine Adolescent Medicine; Visit Provider Nurse Practitioner Obstetrics & Gynecology
DX: R92.8 Other abnormal and inconclusive findings on diagnostic imaging of breast (principal)
CPT/HCPCS: 76641

== ENCOUNTER → 2021-12-18 13:36 | Outpatient (CLI) | payer OTHER, SELFPAY ==
--- NOTE | 2021-12-18 13:39 | CA_ITS ---
FINAL REPORT TECHNIQUE: Color Doppler, duplex Doppler and chen scale sonography of the bilateral neck arterial vasculature was performed. Velocities were measured in the carotid arteries. Stenosis evaluation based on the validated velocity criteria. CLINICAL HISTORY: .DIZZINESS,PARESTHESIA,PATENT FORAMEN OVALE FINDINGS: The peak systolic velocity of the right common carotid artery is 109 cm/s. The peak systolic velocity of the right internal carotid artery is 92 cm/s and end diastolic velocity 34 cm/s. The ICA/CCA ratio is 1.09. No plaque is identified. The right external carotid artery is patent. The right vertebral artery is patent with antegrade flow. The peak systolic velocity of the left common carotid artery is 100 cm/s. The peak systolic velocity of the left internal carotid artery is 92 cm/s and end diastolic velocity 35 cm/s. The ICA/CCA ratio is 0.97. No plaque is identified. The left external carotid artery is patent.The left vertebral artery is patent with antegrade flow. IMPRESSION: Less than 50% bilateral carotid stenoses. Bilateral patent vertebral arteries with antegrade flow. If indicated, CTA or MRA could further evaluate. Reviewed, Interpreted and Dictated by Elias Santoro MD Transcribed by Tiffany Rock Authenticated by Elias Santoro MD on 12/18/2021 03:39:04 PM [facility]
--- NOTE | 2021-12-18 14:06 | MR_ITS ---
FINAL REPORT CLINICAL HISTORY: PATENT FORAMEN OVALE, DIZZINESS, PARESTHESIA FINDINGS: Multi planar MR imaging was obtained through the brain without contrast. The midline structures appear intact. There is no evidence of Chiari malformation. On T2 and flair axial images the brain parenchyma is homogeneous. On diffusion-weighted images there is no evidence of restricted diffusion. The left maxillary sinus is hypoplastic. The seventh and eighth nerve root complexes are intact. IMPRESSION: Essentially unremarkable nonenhanced brain MRI. Reviewed, Interpreted and Dictated by Elias Santoro MD Transcribed by Tiffany Rock Authenticated by Elias Santoro MD on 12/18/2021 04:00:16 PM [facility]
== END ==
PROVIDERS: PCP Internal Medicine Adolescent Medicine; Visit Provider Internal Medicine Adolescent Medicine
DX: R42 Dizziness and giddiness (principal); R20.2 Paresthesia of skin; Q21.1 Atrial septal defect
CPT/HCPCS: 70551; 93880

== ENCOUNTER → 2021-12-24 10:20 | Outpatient (CLI) | payer OTHER, SELFPAY ==
[2021-12-24 11:02] LABS: Basophils # 0.1 K/mm3 (0-0.2); Basophils % 1.4 % (0.1-2.0); Eosinophils % 0.9 % (0.1-12.0); Hematocrit 45.1 % (37.0-47.0); Hemoglobin 14.5 g/dL (12.2-16.2); Lymphocytes % 20.9 % (10-50); Mean Corpuscular HGB Conc 32.2 g/dL (31.8-35.4); Mean Corpuscular Hemoglobin 29.4 pg (27.0-31.2); Mean Corpuscular Volume 91.2 fl (81-99); Mean Platelet Volume 9.8 fl (7.4-10.4); Monocytes # 0.2 K/mm3 (0.1-1.0); Monocytes % 4.4 % (1.7-9.3); Neutrophils # 3.3 K/mm3 (1.8-7.8); Neutrophils % 72.5 % (37.0-80.0); Platelet Count 265 K/mm3 (142-424); Red Blood Count 4.94 M/mm3 (4.20-5.40); Red Cell Distribution Width 14.4 % (11.5-17.5); White Blood Count 4.6 K/mm3 (4.8-10.8)
[2021-12-24 11:50] LABS: Chloride 106 mmol/L (98-107)
[2021-12-24 11:51] LABS: Potassium 3.8 mmoL/L (3.5-5.1); Sodium 140 mmol/L (136-145)
[2021-12-24 11:53] LABS: Alanine Aminotransferase 19 U/L (12-78); Alkaline Phosphatase 80 U/L (38-126); Anion Gap 9.8 mEq/L (5-15); Aspartate Amino Transferase 22 U/L (14-36); Bilirubin,Total 0.5 mg/dl (0.2-1.3); Blood Urea Nitrogen 11 mg/dl (7-17); Carbon Dioxide 28 mmol/L (22.0-30.0); Estimated Glomerular Filt Rate 70 ml/min (>60); GFR (African American) 85 ML/MIN (>60)
[2021-12-24 11:54] LABS: Albumin Level 4.3 g/dl (3.5-5.0); Albumin/Globulin Ratio 1.9 (1.1-1.8); Calcium 9.2 mg/dl (8.4-10.2); Chol/HDL Ratio 5.2 (1-3.5); Cholesterol 208 mg/dl (140-200); Globulin 2.3 g/dL (1.3-3.2); Glucose 89 mg/dl (74-100); HDL Cholesterol 40 mg/dl (40-60); Magnesium 1.8 mg/dl (1.6-2.3); Total Protein,Serum 6.6 g/dl (6.3-8.2); Triglycerides 158 mg/dl (30-150); VLDL Cholesterol 32 mg/dL (0-40)
[2021-12-24 12:05] LABS: Direct LDL Cholesterol 133.02 mg/dL (100-129)
[2021-12-24 12:13] LABS: Free Thyroxine Index 2.1 ug/dL (5.93-13.13); T4 (Thyroxine) 6.9 ug/dl (5.53-11.0); Triiodothryronine (T3) Uptake 30 % (23.5-40.5)
[2021-12-24 12:27] LABS: Thyroid Stimulating Hormone 1.03 uIU/mL (0.465-4.68)
[2021-12-24 12:50] LABS: 25-OH Vitamin D, Total 16.8 ng/mL (30-100)
[2021-12-24 12:51] LABS: Vitamin B12 391 pg/mL (239-931)
== END ==
PROVIDERS: Visit Provider Internal Medicine Adolescent Medicine
DX: R41.89 Other symptoms and signs involving cognitive functions and awareness (principal); E78.5 Hyperlipidemia, unspecified; E55.9 Vitamin D deficiency, unspecified; Q21.1 Atrial septal defect
CPT/HCPCS: 36415; 80053; 80061; 82306; 82607; 83735; 84436; 84443; 84479; 85025

== ENCOUNTER → 2021-12-27 15:13 | Outpatient (CLI) | payer OTHER, SELFPAY ==
[2021-12-27 15:30] VITALS: BP 132/77; PULSE 70; RESP 17; TEMP 36.9; O2SAT 100
[2021-12-27 17:00] VITALS: BP 122/70; PULSE 68; RESP 16; O2SAT 100
== END ==
PROVIDERS: PCP Internal Medicine Adolescent Medicine; Visit Provider Nurse Practitioner Family
DX: R11.2 Nausea with vomiting, unspecified (principal); R19.7 Diarrhea, unspecified
CPT/HCPCS: 96360; 96374; J2405

== ENCOUNTER → 2021-12-30 12:43 | Outpatient (CLI) | payer OTHER, SELFPAY ==
--- NOTE | 2021-12-30 | CA_ITS ---
APPROVED REPORT EXAM: Comprehensive 2D, Doppler, and color-flow Echocardiogram Medical Assistant Cardiology: Mireya Salcedo CRT Ht: 5 ft 7 in Wt: 186lbs BSA: 1.96 BP: 118/72 mmHg Indications: KNOWN PFO, FATIGUE, L ARM NUMBNESS, SPACING OUT EPISODES. Echo Enhancing Agent Indication: Rule out Shunt Agent(s) / Amount(s) Used: Agitated Saline 15 cc Comments: + B/S 2D Dimensions LVOT 1.92 cm (M/F) 1.5-2.5 LA Volume 47.60 mL LA Volume Index 24.30 mL/m2 (M/F) 16-34 M-Mode Dimensions RVDd 2.65 cm (0.9-2.6) LA Diam 3.29 cm (1.9-4.0) LVDd 4.74 cm (3.5-5.7) Ao Diam 3.24 cm (2.0-3.7) LVDs 2.40 cm (3.5-5.7) IVSd 1.06 cm (0.6-1.1) PWd 0.69 cm (0.6-1.1) EF (Teich) 80.70% FS 49.40% EDV (Teich) 104.40 mL TAPSE 2.80 (<1.7) ESV (Teich) 20.20 mL LV Diastology E Decel Time 183.00 (160-240 msec) E/A Ratio 1.25 MED E' 7.40 (< 7 cm/sec) MED A' 13.30 cm/s E'/MED E' Ratio 11.38 (>14) LAT E' 12.60 (<10 cm/sec) LAT A' 10.80 cm/s E/LAT E' Ratio 6.68 (>14) Aortic Valve AO Peak GR. 8.00 mmHg Mitral Valve MV E Max Cortes. 84.00 (40-130 cm/s) MV A Velocity 67.00 (40-130 cm/s) E/A Ratio 1.25 MV Decel. Time 183.00 (160-240 ms) MV PHT 54.00 ms Pulmonary Valve PV Peak Velocity 172.00 (50-150 cm/s) Tricuspid Valve TR P. Velocity 166.00 cm/s RAP Estimate 10.00 mmHg RVSP 21.10 mmHg Left Ventricle Left atrium normal size, left ventricle is normal size, there is no concentric left ventricular hypertrophy, estimated ejection fraction 55% with no regional wall motion abnormality, diastolic parameters are within normal range. Right Ventricle Right atrium and right ventricle are normal size and contractility. Atria Intra-atrial septum appears to be intact, agitated saline contrast study did not identify intracardiac shunt. Aortic Valve Aortic valve is grossly normal, there is no aortic stenosis or aortic insufficiency. Mitral Valve Mitral valve is grossly normal, there is trace mitral regurgitation. Tricuspid Valve Tricuspid valve grossly normal, there is trace tricuspid regurgitation, tricuspid regurgitation jet velocity is inadequate for calculation of the right ventricular systolic pressure. Pulmonic Valve Pulmonic valve is poorly visualized. Great Vessels Aortic root is normal size. Inferior vena cava is poorly visualized. Pericardium No significant pericardial effusion noted. Conclusion 1. Normal left ventricular size, preserved left ventricular systolic function, estimated ejection fraction 55% with no regional wall motion abnormality, diastolic parameters are within normal range. 2. Trace mitral and tricuspid regurgitation. 3. Agitated saline contrast study did not identify intracardiac shunt. 4. No significant pericardial effusion noted. Electronically signed by : Darnell Boone MD 12/30/2021 21:51:13
== END ==
PROVIDERS: PCP Internal Medicine Adolescent Medicine; Visit Provider Internal Medicine Adolescent Medicine
DX: R41.89 Other symptoms and signs involving cognitive functions and awareness (principal); Q21.1 Atrial septal defect
CPT/HCPCS: 93306; 95816

== ENCOUNTER → 2022-04-26 14:46 | Outpatient (CLI) | payer OTHER, SELFPAY ==
[2022-04-26 14:53] LABS: Coronavirus 19, PCR Not Detected (NotDetected); Influenza A, PCR Not Detected (NotDetected); Influenza B, PCR Not Detected (NotDetected)
[2022-04-26 16:25] LABS: Urine Pregnancy, HCG Qual. Negative (Negative)
== END ==
PROVIDERS: PCP Family Medicine; Visit Provider Surgery
DX: Z01.812 Encounter for preprocedural laboratory examination (principal); Z20.822 Contact with and (suspected) exposure to COVID-19; R13.10 Dysphagia, unspecified; Z13.810 Encounter for screening for upper gastrointestinal disorder
CPT/HCPCS: 81025; C9803; U0003; U0005

== ENCOUNTER 2022-04-27 09:33 | Day surgery (SDC) | payer OTHER, SELFPAY ==
[2022-04-26 12:29] VITALS: BMI 28.1
[2022-04-27] VITALS (7 sets, daily range): BP systolic 107–139; BP diastolic 62–85; PULSE 55–66; RESP 16–18; TEMP 36.1; O2SAT 94–100
--- NOTE | 2022-04-27 10:03 | HMH.ANESCL ---
[facility] Anesthesia Checklist - Patient Identification Patient Identification: Arm Band - Structural Data Admitted From: Home Planned Operative Procedure/s: EGD Consent for Planned Operative Procedure(s) Verified: Yes - NPO Status Verified Time NPO: 00:00 - Airway Assessment C-Spine Mobility Assessed: Yes TMJ Mobility Assessed: Yes Dentition: Good Dentition - Neurological Assessment Level of Consciousness: Awake Hx Seizures: No Numbness or tingling in extremities: No - Anesthesia Plan Anesthesia Risk discussed: Yes Anesthesia Plan: Verified ASA Class: II Anesthesia Type: MAC [facility] History I have reviewed the patient's past medical history: Yes Medical History: Reports:: Coronary Artery Disease, Hypertension, Kidney Stones, Migraine Denies:: Cancer, Diabetes Mellitus Type 1, Diabetes Mellitus Type 2, Internal Pacemaker, MRSA, Seizures *Have you ever received a pneumonia vaccine?: No *Have you received a flu vaccine this season?: Yes Other Medical History: Reports: Sinus Problems, Unexplained Bleeding Anesthesia experience/problems:: None Other Surgeries: Yes: No Previous Surgery, Appendectomy, Cholecystectomy, Colonoscopy, , Diagnostic Lap. No: Pacemaker Amputation: No Fractures: Yes - *Social History Last grade of school completed: High school graduate Smoking Status: Never smoker Alcohol Intake: never Substance Use Type: denies use *Occupational Status:: employed Housing: house Household Members: spouse, family *Travel in the last 8 weeks: None Family Hx:: Cancer, Hyperlipidemia, Heart Attack, Coronary Artery Disease, Hypertension, Kidney Disease
--- NOTE | 2022-04-27 10:23 | HMH.SCOPE ---
- Procedure: Date: 04/27/22 Patient Date of :: 1985 Procedure Performed:: Esophagogastroduodenoscopy with biopsy Indications:: Atypical chest pain Intermittent dysphagia Intermittent reflux Performing Provider:: Cale Wu MD Referring Provider:: . Sedation:: Monitored anesthesia care Procedure:: After informed consent was obtained the patient was taken to the endoscopy suite. Sedation ensued after the patient was transferred to the left lateral decubitus position. Pulse, blood pressure, and oxygen saturation were monitored throughout the procedure. The endoscope was advanced beyond the duodenal bulb. Retroflexion within the gastric lumen was accomplished. The gastroscope was carefully removed and the patient was transferred to recovery in stable condition. Please see findings and specimens below for detail. Findings:: Gastroesophageal junction at 38 cm Minimal patchy gastritis Minimal sliding hiatal hernia No obvious stricture or mass lesion Specimens:: Antral biopsy Recommendations:: Follow-up pathology Likely barium swallow in near future Possible manometry studies in near future Complications:: No immediate Estimated blood obtained (mL): 1
== END 2022-04-27 11:15 | disposition home or self-care (01) ==
LOC: OUTP 09:35
PROVIDERS: PCP Family Medicine; Visit Provider Surgery
PROC: 0DJ08ZZ Inspection of Upper Intestinal Tract, Via Natural or Artificial Opening Endoscopic (ICD-10-PCS; CPT 43235; principal; 2022-04-27 10:30)
DX: R13.10 Dysphagia, unspecified (principal); K21.9 Gastro-esophageal reflux disease without esophagitis; R07.89 Other chest pain; I10 Essential (primary) hypertension; I25.10 Atherosclerotic heart disease of native coronary artery without angina pectoris
CPT/HCPCS: 43239

== ENCOUNTER → 2022-05-24 07:44 | Outpatient (CLI) | payer OTHER, SELFPAY ==
--- NOTE | 2022-05-24 07:44 | FL_ITS ---
FINAL REPORT CLINICAL HISTORY: . .40 fluoro time dysphagia FINDINGS: ESOPHAGRAM HISTORY: Abdominal pain, nausea. PROCEDURE: The patient ingested barium. Effervescent crystals were also administered. Spot and overhead films were obtained. FINDINGS: The esophagus is normal. There is no hiatal hernia. There is no gastroesophageal reflux. Peristalsis is normal. IMPRESSION: Normal esophagram. fluoroscopy time: 40 seconds Films reviewed , interpreted and dictated by Dr. Santoro. Transcribed by Saqib Draper PA-C. Reviewed, Interpreted and Dictated by Elias Santoro MD Transcribed by CLAYTON Sanchez Authenticated and [facility]
== END ==
PROVIDERS: PCP Family Medicine; Visit Provider Surgery
DX: R13.10 Dysphagia, unspecified (principal)
CPT/HCPCS: 74220

== ENCOUNTER → 2022-10-19 23:41 | Outpatient (CLI) | payer OTHER, SELFPAY | PROVIDERS: PCP Nurse Practitioner Family; Visit Provider Nurse Practitioner Family | DX: R10.30 Lower abdominal pain, unspecified (principal) | CPT/HCPCS: 87086 ==

== ENCOUNTER → 2022-11-11 14:25 | Outpatient (CLI) | payer OTHER, SELFPAY ==
--- NOTE | 2022-11-11 14:25 | MM_ITS ---
PROCEDURE INFORMATION: Exam: MG Bilateral Screening 3D Mammography Exam date and time: 11/11/2022 2:40 PM Age: 37 years old Clinical indication: Screening. Her paternal grandmother had breast cancer and her mother had breast cancer at age 60. TECHNIQUE: Imaging protocol: Bilateral Screening tomosynthesis and 2D mammography including computer-aided detection (CAD) when performed. COMPARISON: 1. MG MM DIG SCREENING MAMM BI W/CAD 10/27/2021 11:00 AM 2. MG MM DIG SCREENING MAMM BI W/CAD 10/12/2019 9:04 AM 3. US BREAST LT COMPLETE 11/03/2021 3:04 PM 4. BL US BREAST-LT COMPLETE W/AXILLA 03/16/2017 10:50 AM FINDINGS: MAMMOGRAPHY: Breast composition: The breasts are heterogeneously dense, which may obscure small masses. Mass: None. Architectural distortion: None. Calcifications: No suspicious calcifications. Asymmetric density: None. Skin thickening: None. Axillary adenopathy: None. IMPRESSION: No mammographic evidence of malignancy. Annual screening is recommended unless otherwise clinically indicated. ASSESSMENT: BI-RADS Category 1: Negative
== END ==
PROVIDERS: PCP Nurse Practitioner Family; Visit Provider Nurse Practitioner Obstetrics & Gynecology
DX: Z12.31 Encounter for screening mammogram for malignant neoplasm of breast (principal)
CPT/HCPCS: 77063; 77067

== ENCOUNTER → 2022-11-18 14:35 | Outpatient (CLI) | payer OTHER, SELFPAY ==
--- NOTE | 2022-11-18 14:36 | US_ITS ---
FINAL REPORT CLINICAL HISTORY: Suprapubic Abdominal Pain/Pelvic pain FINDINGS: Transvaginal sonographic images of the pelvis were obtained. The uterus measures 8.9 x 4.4 cm. The endometrium measures 0.31 cm, which is within normal limits. An IUD seen in the uterus. The uterine echotexture is mildly heterogeneous. There is a small echogenic focus in the uterus measuring 4 mm of uncertain etiology, could represent a small uterine fibroid. The right ovary measures 2.1 cm in length and left ovary measures 2.9 cm in length. Normal blood flow seen to the ovaries. Small follicles are present. There is no evidence of free fluid. IMPRESSION: Possible small uterine fibroid. Reviewed, Interpreted and Dictated by Irineo Lange III, MD Transcribed by Tiffany Rock Authenticated and [facility]
== END ==
PROVIDERS: PCP Nurse Practitioner Family; Visit Provider Obstetrics & Gynecology
DX: R10.2 Pelvic and perineal pain (principal)
CPT/HCPCS: 76830

== ENCOUNTER → 2023-03-11 15:28 | Outpatient (CLI) | payer OTHER, SELFPAY ==
--- NOTE | 2023-03-11 15:36 | XR_ITS ---
FINAL REPORT CLINICAL HISTORY: Pain w swelling @ 1st MCP joint of Rt hand. Occasional numbness/tingling. NKT FINDINGS: RIGHT HAND SERIES Three views of the right hand were obtained. There is no acute fracture or dislocation. The joint spaces are preserved. There is a chronic calcification adjacent to the ulnar styloid process. IMPRESSION: No acute abnormality. Reviewed, Interpreted and Dictated by Irineo Lange III, MD Transcribed by Shabana Marshall Authenticated and [facility]
[2023-03-11 16:23] LABS: Basophils % 0.6 % (0.1-2.0); Eosinophils # 0.1 K/mm3 (0.0-0.4); Hematocrit 41.5 % (37.0-47.0); Hemoglobin 13.5 g/dL (12.2-16.2); Lymphocytes # 1.4 K/mm3 (0.7-4.5); Mean Corpuscular HGB Conc 32.5 g/dL (31.8-35.4); Mean Corpuscular Hemoglobin 27.6 pg (27.0-31.2); Monocytes # 0.2 K/mm3 (0.1-1.0); Monocytes % 4.1 % (1.7-9.3); Neutrophils # 4.2 K/mm3 (1.8-7.8); Neutrophils % 69.4 % (37.0-80.0); Platelet Count 282 K/mm3 (142-424); Red Blood Count 4.88 M/mm3 (4.20-5.40); Red Cell Distribution Width 13.7 % (11.5-17.5)
[2023-03-11 17:09] LABS: Erythrocyte Sedimentation Rate 13 mm/hr (0-20)
[2023-03-11 17:56] LABS: Chloride 102 mmol/L (98-107); Potassium 4.3 mmoL/L (3.5-5.1); Sodium 141 mmol/L (136-145)
[2023-03-11 17:59] LABS: Alanine Aminotransferase 27 U/L (12-78); Albumin Level 4.3 g/dl (3.5-5.0); Albumin/Globulin Ratio 1.7 (1.1-1.8); Alkaline Phosphatase 68 U/L (38-126); Anion Gap 12.3 mEq/L (5-15); Aspartate Amino Transferase 26 U/L (14-36); Bilirubin,Total 0.3 mg/dl (0.2-1.3); Blood Urea Nitrogen 8 mg/dl (7-17); Calcium 9.6 mg/dl (8.4-10.2); Carbon Dioxide 31 mmol/L (22.0-30.0); Estimated Glomerular Filt Rate 80 ml/min (>60); GFR (African American) 97 ML/MIN (>60); Globulin 2.5 g/dL (1.3-3.2); Glucose 97 mg/dl (74-100); Total Protein,Serum 6.8 g/dl (6.3-8.2)
[2023-03-11 18:04] LABS: C-Reactive Protein 2.6 mg/L (0-4)
[2023-03-11 19:37] LABS: Uric Acid 5.2 mg/dl (2.5-6.2)
[2023-03-11 20:08] LABS: Thyroid Stimulating Hormone 1.41 uIU/mL (0.465-4.68)
[2023-03-13 08:18] LABS: RA Latex Turbid. <10.0 IU/mL (<14.0)
[2023-03-14 20:42] LABS: Antinuclear Antibodies, IFA Negative (.)
[2023-04-20 08:02] LABS: Antinuclear Antibodies (ANA) Negative
== END ==
PROVIDERS: PCP Family Medicine; Visit Provider Family Medicine
DX: M25.541 Pain in joints of right hand (principal); R53.83 Other fatigue
CPT/HCPCS: 36415; 73130; 80053; 84443; 84550; 85025; 85651; 86038; 86140; 86225; 86235; 86431

== ENCOUNTER → 2023-07-25 17:33 | Outpatient (CLI) | payer OTHER, SELFPAY ==
[2023-07-25 17:11] LABS: Alanine Aminotransferase 25 U/L (12-78); Albumin Level 4.3 g/dl (3.5-5.0); Albumin/Globulin Ratio 1.7 (1.1-1.8); Alkaline Phosphatase 79 U/L (38-126); Anion Gap 11.9 mEq/L (5-15); Aspartate Amino Transferase 28 U/L (14-36); Bilirubin,Total 0.6 mg/dl (0.2-1.3); Blood Urea Nitrogen 11 mg/dl (7-17); Calcium 9.8 mg/dl (8.4-10.2); Carbon Dioxide 29 mmol/L (22.0-30.0); Chloride 101 mmol/L (98-107); Estimated Glomerular Filt Rate 93 ml/min (>60); GFR (African American) 112 ML/MIN (>60); Globulin 2.6 g/dL (1.3-3.2); Glucose 111 mg/dl (74-100); Potassium 3.9 mmoL/L (3.5-5.1); Sodium 138 mmol/L (136-145); Total Protein,Serum 6.9 g/dl (6.3-8.2)
[2023-07-25 17:16] LABS: Basophils % 0.3 % (0.1-2.0); Eosinophils # 0.1 K/mm3 (0.0-0.4); Eosinophils % 2.4 % (0.1-12.0); Hematocrit 42.9 % (37.0-47.0); Hemoglobin 14.6 g/dL (12.2-16.2); Lymphocytes # 1.3 K/mm3 (0.7-4.5); Lymphocytes % 26.1 % (10-50); Mean Corpuscular Hemoglobin 29.5 pg (27.0-31.2); Mean Corpuscular Volume 86.8 fl (81-99); Mean Platelet Volume 10.4 fl (7.4-10.4); Monocytes # 0.2 K/mm3 (0.1-1.0); Monocytes % 4.1 % (1.7-9.3); Neutrophils # 3.4 K/mm3 (1.8-7.8); Neutrophils % 67.1 % (37.0-80.0); Platelet Count 270 K/mm3 (142-424); Red Blood Count 4.95 M/mm3 (4.20-5.40); Red Cell Distribution Width 13.7 % (11.5-17.5); White Blood Count 5.1 K/mm3 (4.8-10.8)
--- NOTE | 2023-07-25 17:36 | XR_ITS ---
PROCEDURE INFORMATION: Exam: XR Cervical Spine Exam date and time: 07/25/2023 5:30 PM Age: 38 years old Clinical indication: Neck pain; Additional info: Numbness left arm TECHNIQUE: Imaging protocol: Radiologic exam of the cervical spine. Views: 2 or 3 views. COMPARISON: CT CERVICAL SPINE WO CON 05/09/2020 9:37 PM FINDINGS: Bones/joints: No acute fracture. Normal alignment. Mild multilevel facet arthropathy. Minimal lower cervical endplate degenerative changes. Maxillary mandibular fixation hardware. Soft tissues: Unremarkable. IMPRESSION: 1. No acute findings. 2. Minimal cervical spondylosis.
[2023-07-25 17:58] LABS: Vitamin B12 316 pg/mL (239-931)
[2023-07-27 10:44] LABS: Chol/HDL Ratio 5.4 (1-3.5); Cholesterol 211 mg/dl (140-200); HDL Cholesterol 39 mg/dl (40-60); Triglycerides 138 mg/dl (30-150); VLDL Cholesterol 28 mg/dL (0-40)
[2023-07-27 10:55] LABS: Direct LDL Cholesterol 150.95 mg/dL (100-129)
== END ==
PROVIDERS: PCP Family Medicine; Visit Provider Family Medicine
DX: F32.A Depression, unspecified (principal); R20.2 Paresthesia of skin; R53.83 Other fatigue
CPT/HCPCS: 72040; 80053; 80061; 82607; 85025

== ENCOUNTER → 2023-07-27 14:50 | Outpatient (CLI) | payer OTHER, SELFPAY | PROVIDERS: PCP Family Medicine; Visit Provider Family Medicine | DX: Z13.220 Encounter for screening for lipoid disorders (principal) | CPT/HCPCS: 80061 ==

== ENCOUNTER → 2023-09-09 09:55 | Outpatient (CLI) | payer OTHER, SELFPAY | LOC: SL 09-12 09:56 | PROVIDERS: PCP Family Medicine; Visit Provider Family Medicine | DX: R06.83 Snoring (principal) | CPT/HCPCS: 95806 ==

== ENCOUNTER 2023-11-08 13:56 | Outpatient (CLI) | payer OTHER, SELFPAY ==
--- NOTE | 2023-11-08 14:01 | XR_ITS ---
FINAL REPORT CLINICAL HISTORY: foot pain..cow stepped on foot tuesday FINDINGS: Right foot Three views were obtained. There is no acute fracture or dislocation. The joint spaces appear normal. No soft tissue abnormality is identified. IMPRESSION: No acute process. Reviewed, Interpreted and Dictated by Irineo Lange III, MD Transcribed by Tiffany Rock Authenticated and . [facility]
== END 2023-11-08 23:59 ==
LOC: RAD 13:57
PROVIDERS: PCP Family Medicine; Visit Provider Family Medicine
DX: M79.671 Pain in right foot (principal)
CPT/HCPCS: 73630

== ENCOUNTER → 2023-11-30 20:08 | Outpatient (CLI) | payer OTHER, SELFPAY | PROVIDERS: PCP Family Medicine; Visit Provider Family Medicine | DX: G47.30 Sleep apnea, unspecified (principal); R06.83 Snoring; R53.83 Other fatigue; R40.0 Somnolence | CPT/HCPCS: 95810 ==

== ENCOUNTER 2023-12-09 19:05 | Outpatient (CLI) | payer OTHER, SELFPAY ==
[2023-12-09 16:31] LABS: Basophils # 0.1 K/mm3 (0-0.2); Basophils % 1.9 % (0.1-2.0); Eosinophils # 0.2 K/mm3 (0.0-0.4); Eosinophils % 2.5 % (0.1-12.0); Hematocrit 43.6 % (37.0-47.0); Hemoglobin 14.2 g/dL (12.2-16.2); Lymphocytes # 1.6 K/mm3 (0.7-4.5); Lymphocytes % 26.9 % (10-50); Mean Corpuscular HGB Conc 32.5 g/dL (31.8-35.4); Mean Corpuscular Hemoglobin 29.2 pg (27.0-31.2); Mean Corpuscular Volume 89.8 fl (81-99); Mean Platelet Volume 10.4 fl (7.4-10.4); Monocytes # 0.2 K/mm3 (0.1-1.0); Monocytes % 3.9 % (1.7-9.3); Neutrophils # 3.9 K/mm3 (1.8-7.8); Neutrophils % 64.8 % (37.0-80.0); Platelet Count 278 K/mm3 (142-424); Red Blood Count 4.85 M/mm3 (4.20-5.40); White Blood Count 5.9 K/mm3 (4.8-10.8)
[2023-12-09 17:12] LABS: Chloride 108 mmol/L (98-107)
[2023-12-09 17:13] LABS: Sodium 140 mmol/L (136-145)
[2023-12-09 17:15] LABS: Alanine Aminotransferase 28 U/L (12-78); Alkaline Phosphatase 81 U/L (38-126); Aspartate Amino Transferase 30 U/L (14-36); Bilirubin,Total 0.4 mg/dl (0.2-1.3); Blood Urea Nitrogen 15 mg/dl (7-17); Estimated Glomerular Filt Rate 93 ml/min (>60); GFR (African American) 112 ML/MIN (>60)
[2023-12-09 17:16] LABS: Albumin Level 4.1 g/dl (3.5-5.0); Albumin/Globulin Ratio 1.8 (1.1-1.8); Calcium 9.5 mg/dl (8.4-10.2); Carbon Dioxide 26 mmol/L (22.0-30.0); Chol/HDL Ratio 4.3 (1-3.5); Cholesterol 240 mg/dl (140-200); Globulin 2.3 g/dL (1.3-3.2); Glucose 82 mg/dl (74-100); HDL Cholesterol 56 mg/dl (40-60); Total Protein,Serum 6.4 g/dl (6.3-8.2); Triglycerides 86 mg/dl (30-150); VLDL Cholesterol 17 mg/dL (0-40)
[2023-12-09 17:28] LABS: Direct LDL Cholesterol 150.02 mg/dL (100-129)
[2023-12-09 17:47] LABS: Thyroid Stimulating Hormone 2.17 uIU/mL (0.465-4.68)
[2023-12-10 08:16] LABS: FSH 11.1 mIU/mL (.); LH 8.2 mIU/mL (.)
[2023-12-16 01:12] LABS: Estrogen 117 pg/mL (.)
== END 2023-12-09 23:59 ==
LOC: LAB.DROPOF 19:05
PROVIDERS: PCP Family Medicine; Visit Provider Family Medicine
DX: R53.83 Other fatigue (principal); Z79.899 Other long term (current) drug therapy
CPT/HCPCS: 80053; 80061; 82672; 83001; 83002; 84436; 84443; 85025

== ENCOUNTER 2023-12-24 18:17 | Emergency (ER) | payer OTHER, SELFPAY ==
[2023-12-24 18:18] VITALS: BP 173/97; PULSE 107; RESP 18; TEMP 36.7; O2SAT 97; BMI 29.0
--- NOTE | 2023-12-24 18:30 | XR_ITS ---
PROCEDURE INFORMATION: Exam: XR Abdomen Exam date and time: 12/24/2023 6:59 PM Age: 38 years old Clinical indication: Bloating and constipation; Additional info: Upright and lateral decub, concern for obstruction TECHNIQUE: Imaging protocol: Radiologic exam of the abdomen. Views: 2 Views. Upright and supine views. COMPARISON: CR XR KUB 08/03/2021 1:28 PM FINDINGS: Gastrointestinal tract: There is mild gaseous distention of bowel loops, which is not uncommon and may be related to diet or transient bowel habits. Intraperitoneal space: Standard views of the abdomen were obtained. No evidence of obstruction, perforation, or free intraperitoneal air is observed. There are right upper quadrant surgical clips suggesting prior cholecystectomy. Organs: There is an intrauterine device in place. Liver, spleen, and renal shadows appear unremarkable. Bones/joints: Unremarkable for age. IMPRESSION: At the time of imaging, the abdominal radiograph demonstrates no acute abdominal pathology but does reveal mild gaseous distention of bowel loops. Clinical correlation is advised for comprehensive assessment.
--- NOTE | 2023-12-24 18:40 | HMH.EDGENADL ---
Discharge Plan Disposition Patient Disposition: Home, Self-Care Chief Complaint: Abdominal Pain Prescriptions Prescriptions: No Action Mirena 20 mcg/24 hr (5 years) intrauterine device 1 dose INTRAUTERI CONT clobetasol 0.05 % ointment topical Patient Comments: APPLY A THIN FILM TO THE AFFECTED AREA OF SKIN 2 TIMES EACH DAY olopatadine 0.1 % drops 1 drp ophthalmic (eye) BID PRN Rx Instructions: separate doses by at least 6-8 hours Tremfya 100 mg/mL auto-injector 100 mg SQ Q8W meloxicam 7.5 mg tablet 7.5 mg PO DAILY 30 Days Qty: 30 1RF montelukast [Singulair] 10 mg tablet 10 mg PO QHS 90 Days Qty: 90 1RF ondansetron 4 mg tablet,disintegrating 4 mg PO BID PRN (Reason: nausea and vomiting) 5 Days Qty: 10 2RF levocetirizine 5 mg tablet See Rx Instructions .ROUTE .COMPLEX Qty: 90 2RF Dose Instruction: TAKE ONE TABLET BY MOUTH EVERY EVENING Rx Instructions: TAKE ONE TABLET BY MOUTH EVERY EVENING mupirocin 2 % ointment 1 applic topical BID Qty: 22 1RF fluoxetine [Prozac] 20 mg capsule 20 mg PO DAILY Qty: 30 2RF simvastatin 10 mg tablet 10 mg PO DAILY Qty: 30 2RF amoxicillin-pot clavulanate 875-125 mg tablet 1 tab PO BID 10 Days Qty: 20 0RF fluticasone propionate [Flonase Allergy Relief] 50 mcg/actuation spray,suspension 1 spray intranasal DAILY Qty: 16 2RF Rx Instructions: administer into each nostril verapamil 120 mg capsule,ext rel. pellets 24 hr 120 mg PO DAILY 90 Days Qty: 90 0RF aspirin 81 MG tablet,chewable 81 mg PO DAILY Referrals Follow up/Referrals: Sourav Lopez MD [Primary Care Provider] - See instructions Activity Restrictions/Add. Instructions Additional Instructions/Restrictions: Disimpaction with she, as discussed. Senna and MiraLAX and Gatorade. You can also use an enema or 2 first to see if it relieves the constipation. Hold enemas and as long as you can. Once having bowel movements, continue MiraLAX 1 capful daily until you are having soft bowel movements once to twice daily. Follow-up with your family doctor regarding this visit to the emergency department. Clinical Impressions Clinical Impression: Constipation, Abdominal pain Instructions Patient Instructions: DI for Acute Abdominal Pain Discharge ED Provider: Arie De La Rosa General Adult HPI General Chief complaint: Abdominal Pain Stated complaint: abd pain Time Seen by Provider: 12/24/23 18:18 Mode of Arrival: Ambulatory Source of Information: Patient Limitations: No Limitations Description of Symptoms (Recalled from ER Triage Doc. by RN): pt has been noticing gas pain/ abd pain over the last 3-4 days and has tried treating it at home with ex lax, gas x, and a gylcerin suppository with nothing making it better. History of Present Illness HPI narrative: 38-year-old female history of cholecystectomy, appendectomy, section without history of obstruction presenting with concern for constipation versus obstruction. Patient states that she has not had a bowel movement since Tuesday, 4 days prior to this visit. No fevers or chills, patient has been nauseated. Does not know if she is passing gas, but feels as if she is bloated. Discomfort extends from suprapubic area up the left side, all the way out to the right upper quadrant. Has tried simethicone, glycerin suppository, stimulant laxative, no large volume BM. Still tolerating p.o. intake, has appetite, no urinary symptoms. Please note that above description of symptoms, in this electronic medical record under categorization of recalled from ER triage doctor by RN are reflective of an initial nursing assessment, however, is not reflective of my full history and physical exam that was personally taken and clarified. Consequentially, this preceding description of symptoms, which may include the patient's categorized chief complaint in the EMR, do not reflect my personal clinical impression, and the ultimate description of history of present illness and patient stated complaints should be deferred to this section of the note. Unless stated otherwise or congruent with this section of the note, additional signs, symptoms, or incongruence should be interpreted as inaccurate with my clinical impression. Related Data Home Medications Medication Instructions Recorded Confirmed aspirin 81 mg chewable tablet 81 mg PO DAILY PFO 03/12/18 12/01/23 levonorgestrel 21 mcg/24 hours (8 1 dose intrauterine CONT 05/15/18 12/01/23 yrs) 52 mg intrauterine device control (Mirena) clobetasol 0.05 % topical ointment g topical 11/19/22 12/01/23 guselkumab 100 mg/mL subcutaneous 100 mg SQ Q8W psoriasis 07/25/23 12/01/23 auto-injector (Tremfya) olopatadine 0.1 % eye drops 1 drp ophthalmic (eye) BID PRN 07/25/23 12/01/23 Previous Rx's Medication Instructions Recorded montelukast 10 mg tablet 10 mg PO QHS Allergy symptoms 90 07/25/23 (Singulair) days #90 tabs ondansetron 4 mg disintegrating 4 mg PO BID PRN nausea and 08/17/23 tablet vomiting 5 days #10 tabs levocetirizine 5 mg tablet See Rx Instructions .Route 08/27/23 .COMPLEX #90 tabs mupirocin 2 % topical ointment 1 applic topical BID #22 grams 11/07/23 fluoxetine 20 mg capsule (Prozac) 20 mg PO DAILY #30 caps 11/24/23 meloxicam 7.5 mg tablet 7.5 mg PO DAILY pain 30 days #30 12/01/23 tabs simvastatin 10 mg tablet 10 mg PO DAILY #30 tabs 12/12/23 amoxicillin 875 mg-potassium 1 tab PO BID 10 days #20 tabs 12/20/23 clavulanate 125 mg tablet fluticasone propionate 50 1 spray intranasal DAILY #16 grams 12/20/23 mcg/actuation nasal spray,suspension (Flonase Allergy Relief) verapamil 120 mg 24 hr 120 mg PO DAILY Hypertension 90 12/23/23 capsule,extended release days #90 caps Allergies Allergy/AdvReac Type Severity Reaction Status Date / Time No Known Allergies Allergy Verified 12/01/23 08:05 [facility] Disclaimer: The information contained in this section may have been updated after the patient was seen, as this information can be updated by other users. Medical History Family history of breast cancer IUD contraception Mirena IUD inserted 03/27/18 Psoriasis Dysphagia Gastroesophageal reflux Atypical chest pain Left wrist fracture Ribs, multiple fractures Liver laceration Ruptured ovarian cyst Patent foramen ovale Abnormal uterine bleeding Surgical History History of wisdom tooth extraction History of surgery on left wrist History of delivery History of appendectomy History of cholecystectomy H/O oral surgery History of esophagogastroduodenoscopy (EGD) Family History Father No problems noted. Grandfather Hypertension Hyperlipidemia Mitral valve disorder Chronic a-fib Grandmother Hyperlipidemia Hypertension Mother Cancer breast Social History Smoking Status: Never smoker second hand exposure: No alcohol intake: never substance use type: denies use current occupational status: employed Travel in the last 8 weeks: None household members: spouse and family housing: house marital status: current occupational exposures/hazards: No caffeine: Yes ROS Obtained: Yes All systems reviewed & no additional complaints except as documented Physical Exam General General appearance: alert and in no apparent distress Head Head exam: atraumatic and normocephalic Eye Eye exam: Present normal appearance, PERRL and EOMI ENT ENT exam: Present mucous membranes moist Neck Neck exam: Present normal inspection, full ROM and trachea midline Respiratory Respiratory exam: Present normal lung sounds bilaterally; Absent respiratory distress, wheezes, stridor, accessory muscle use or prolonged expiratory phase Cardiovascular Cardiovascular exam: Present normal rhythm Abdominal Exam Abdominal exam: Present soft; Absent distention, tenderness, guarding, rebound or rigidity Extremities Exam Extremities exam: Absent edema Neurological Exam Neurological exam: Present alert, oriented X3, CN II-XII intact and normal gait; Absent motor sensory deficit Skin Skin exam: Present warm and dry; Absent diaphoresis or erythema Medical Decision Making Medical Records Medical records reviewed: Yes I reviewed the patient's medical records. Gagandeep Inquiry Pt receiving controlled substance: No Gagandeep was queried for this patient: No Vital Signs: 12/24/23 18:18 Temperature 98.1 F Temperature Source Oral Pulse Rate [Right Radial] 107 H Respiratory Rate 18 Blood Pressure [Right Arm] 173/97 H Blood Pressure Mean [Right Arm] 122 02 Sat by Pulse Oximetry 97 Oxygen Delivery Method Room Air Lab Data Lab Results 12/24/23 18:38: Urine Color Yellow, Urine Appearance Clear, Urine pH 5.5, Ur Specific [place] >= 1.030, Urine Protein Negative, Urine Glucose (UA) Negative, Urine Ketones Negative, Urine Blood Negative, Urine Nitrate Negative, Urine Bilirubin Negative, Urine Urobilinogen 0.2, Ur Leukocyte Esterase Negative, Urine RBC None, Urine WBC 3-5, Ur Squamous Epith Cells 5-10, Urine Bacteria Trace, Urine Mucus Trace 12/24/23 18:45: WBC 7.4, RBC 5.09, Hgb 14.6, Hct 44.9, MCV 88.2, MCH 28.7, MCHC 32.6, RDW 14.2, Plt Count 285, MPV 8.9, Neut % (Auto) 68.8, Lymph % (Auto) 25.2, [place] % (Auto) 3.9, Eos % (Auto) 1.1, Baso % (Auto) 0.9, Neut # (Auto) 5.1, Lymph # (Auto) 1.9, [place] # (Auto) 0.3, Eos # (Auto) 0.1, Baso # (Auto) 0.1, Sodium 142, Potassium 3.7, Chloride 107, Carbon Dioxide 31 H, Anion Gap 7.7, BUN 9, Creatinine 0.70, Estimated Creat Clear 142, Estimated GFR 93, Est GFR ( Amer) 112, Glucose 136 H, Lactate 1.4, Calcium 9.8, Total Bilirubin 0.4, AST 33, ALT 24, Alkaline Phosphatase 72, Total Protein 6.7, Albumin 4.2, Globulin 2.5, Albumin/Globulin Ratio 1.7, Lipase 50, HCG, Quant < 2 12/24/23 18:45 12/24/23 18:45 Orders (Tests/Meds): ORDERS Category Date Time Status Acute abdomen XR minimum 2 views [XR abdomen min 2V] Exams 12/24/23 18:30 Taken Stat CBC w/Auto Diff [Complete Blood Count Auto Diff] Stat Lab 12/24/23 18:45 Completed CMP [Comprehensive Metabolic Panel] Stat Lab 12/24/23 18:45 Completed HCG,Quantitative Stat Lab 12/24/23 18:45 Completed Lactic Acid Stat Lab 12/24/23 18:45 Completed Lipase Stat Lab 12/24/23 18:45 Completed UA [Urinalysis and Microscopic] Stat Lab 12/24/23 18:38 Completed Medical Decision Narrative: 38-year-old female history of cholecystectomy, appendectomy, section without history of obstruction presenting with concern for constipation versus obstruction. Patient states that she has not had a bowel movement since Tuesday, 4 days prior to this visit. No fevers or chills, patient has been nauseated. Does not know if she is passing gas, but feels as if she is bloated. Discomfort extends from suprapubic area up the left side, all the way out to the right upper quadrant. Has tried simethicone, glycerin suppository, stimulant laxative, no large volume BM. Still tolerating p.o. intake, has appetite, no urinary symptoms. History was obtained via conversation with patient. On arrival, patient hemodynamically stable, alert, oriented x4, appropriate, GCS 15, moving all extremities spontaneously, pupils equal and reactive to light. Full physical exam performed and significant for well-appearing woman in no acute distress. Abdomen is soft, nondistended, minimally tender in suprapubic area, but no evidence of peritonitis. Patient does not appear to be in any distress. Workup independently interpreted and significant for nonactionable hematologic workup, urine negative, lactic acid negative. hCG negative. Two-view abdominal x-ray without concern for acute obstruction, but patient does have moderate to severe stool burden with stool ball in rectal vault. See radiology read for full review of final results. CT of the abdomen pelvis was considered, but not deemed necessary. Patient's abdomen is soft, nondistended, she is in no acute distress, and labs and imaging are reassuring. Patient offered enema versus disimpaction, opted to do this at home. I feel this is appropriate. Given patient presentation, workup, history, this most likely represents acute constipation pain. Because patient at baseline without signs or symptoms of clinical decompensation, deemed appropriate for discharge. Results were relayed to patient who voiced understanding and were agreeable to outpatient management and follow up. I discussed my clinical impression with patient and answered all questions. At this time, the evidence for any other entities in the differential is insufficient to warrant any further testing or ED observation. This was explained as well. Advisory was given that persistent or worsening symptoms require further evaluation. I confirmed the understanding of this discussion. Critical Care Critical Care Time Critical Care Time: No
[2023-12-24 18:41] LABS: Microscopic, Urine URINE MICROSCOPIC (MICROSCOPIC)
[2023-12-24 18:43] LABS: Appearance,Urine CLEAR (Clear); Bilirubin,Urine Negative (Negative); Blood, Urine Negative (Negative); Color,Urine YELLOW (Yellow); Glucose,Urine (UA) Negative (Negative); Ketones,Urine Negative (Negative); Leukocyte Esterase,Urine Negative (Negative); Nitrate,Urine Negative (Negative); PH,Urine 5.5 (5.0-8.5); Protein,Urine Negative (Negative); Specific Gravity, Urine >= 1.030 (1.005-1.030); Urobilinogen,Urine 0.2 EU/dl (0.2)
[2023-12-24 18:54] LABS: Bacteria,Urine Trace /lpf; Mucus,Urine Trace /lpf
[2023-12-24 18:58] LABS: Chloride 107 mmol/L (98-107)
[2023-12-24 18:59] LABS: Basophils # 0.1 K/mm3 (0-0.2); Basophils % 0.9 % (0.1-2.0); Eosinophils # 0.1 K/mm3 (0.0-0.4); Eosinophils % 1.1 % (0.1-12.0); Hematocrit 44.9 % (37.0-47.0); Hemoglobin 14.6 g/dL (12.2-16.2); Lymphocytes # 1.9 K/mm3 (0.7-4.5); Lymphocytes % 25.2 % (10-50); Mean Corpuscular HGB Conc 32.6 g/dL (31.8-35.4); Mean Corpuscular Hemoglobin 28.7 pg (27.0-31.2); Mean Corpuscular Volume 88.2 fl (81-99); Mean Platelet Volume 8.9 fl (7.4-10.4); Monocytes # 0.3 K/mm3 (0.1-1.0); Monocytes % 3.9 % (1.7-9.3); Neutrophils # 5.1 K/mm3 (1.8-7.8); Neutrophils % 68.8 % (37.0-80.0); Platelet Count 285 K/mm3 (142-424); Potassium 3.7 mmoL/L (3.5-5.1); Red Blood Count 5.09 M/mm3 (4.20-5.40); Red Cell Distribution Width 14.2 % (11.5-17.5); Sodium 142 mmol/L (136-145); White Blood Count 7.4 K/mm3 (4.8-10.8)
[2023-12-24 19:01] LABS: Alanine Aminotransferase 24 U/L (12-78); Alkaline Phosphatase 72 U/L (38-126); Anion Gap 7.7 mEq/L (5-15); Aspartate Amino Transferase 33 U/L (14-36); Bilirubin,Total 0.4 mg/dl (0.2-1.3); Blood Urea Nitrogen 9 mg/dl (7-17); Carbon Dioxide 31 mmol/L (22.0-30.0); Creatinine Clearance Estimated 142 mL/min (50-200); Estimated Glomerular Filt Rate 93 ml/min (>60); GFR (African American) 112 ML/MIN (>60); Lipase 50 U/L (23-300)
[2023-12-24 19:02] LABS: Albumin Level 4.2 g/dl (3.5-5.0); Albumin/Globulin Ratio 1.7 (1.1-1.8); Calcium 9.8 mg/dl (8.4-10.2); Globulin 2.5 g/dL (1.3-3.2); Glucose 136 mg/dl (74-100); Lactic Acid 1.4 mmol/L (0.7-2.1); Total Protein,Serum 6.7 g/dl (6.3-8.2)
[2023-12-24 19:22] LABS: HCG,Quantitative < 2 mIU/ml (0-5.42)
[2023-12-24 19:31] VITALS: BP 154/87; PULSE 92; RESP 18; TEMP 36.7; O2SAT 99
== END 2023-12-24 19:32 | disposition home or self-care (01) ==
PROVIDERS: Emergency Provider Emergency Medicine; PCP Family Medicine
DX: R10.84 Generalized abdominal pain (principal); K59.00 Constipation, unspecified; R11.0 Nausea; K21.9 Gastro-esophageal reflux disease without esophagitis
CPT/HCPCS: 74019; 80053; 81001; 83605; 83690; 84702; 85025; 99283

== ENCOUNTER 2024-01-10 16:09 | Outpatient (POV) | payer OTHER, SELFPAY | END 2024-01-10 23:59 | disposition home or self-care (01) | LOC: SC 16:10 | PROVIDERS: PCP Family Medicine; Visit Provider Dermatology | DX: Z00.00 Encounter for general adult medical examination without abnormal findings (principal) ==

== ENCOUNTER 2024-03-12 16:16 | Outpatient (CLI) | payer OTHER, SELFPAY ==
[2024-03-12 17:15] LABS: Basophils % 0.6 % (0.1-2.0); Eosinophils # 0.1 K/mm3 (0.0-0.4); Eosinophils % 2.1 % (0.1-12.0); Hematocrit 40.9 % (37.0-47.0); Hemoglobin 13.8 g/dL (12.2-16.2); Lymphocytes # 1.7 K/mm3 (0.7-4.5); Lymphocytes % 29.9 % (10-50); Mean Corpuscular HGB Conc 33.6 g/dL (31.8-35.4); Mean Corpuscular Hemoglobin 29.7 pg (27.0-31.2); Mean Corpuscular Volume 88.3 fl (81-99); Mean Platelet Volume 10.3 fl (7.4-10.4); Monocytes # 0.3 K/mm3 (0.1-1.0); Monocytes % 4.9 % (1.7-9.3); Neutrophils # 3.5 K/mm3 (1.8-7.8); Neutrophils % 62.5 % (37.0-80.0); Platelet Count 276 K/mm3 (142-424); Red Blood Count 4.64 M/mm3 (4.20-5.40); Red Cell Distribution Width 14.2 % (11.5-17.5); White Blood Count 5.6 K/mm3 (4.8-10.8)
[2024-03-12 17:48] LABS: Alanine Aminotransferase 19 U/L (12-78); Albumin Level 4.3 g/dl (3.5-5.0); Albumin/Globulin Ratio 1.8 (1.1-1.8); Alkaline Phosphatase 71 U/L (38-126); Anion Gap 10.1 mEq/L (5-15); Aspartate Amino Transferase 22 U/L (14-36); Bilirubin,Total 0.6 mg/dl (0.2-1.3); Blood Urea Nitrogen 9 mg/dl (7-17); Calcium 10.1 mg/dl (8.4-10.2); Carbon Dioxide 29 mmol/L (22.0-30.0); Chloride 106 mmol/L (98-107); Chol/HDL Ratio 3.6 (1-3.5); Cholesterol 149 mg/dl (140-200); Estimated Glomerular Filt Rate 93 ml/min (>60); GFR (African American) 112 ML/MIN (>60); Globulin 2.4 g/dL (1.3-3.2); Glucose 93 mg/dl (74-100); HDL Cholesterol 41 mg/dl (40-60); Potassium 4.1 mmoL/L (3.5-5.1); Sodium 141 mmol/L (136-145); Total Protein,Serum 6.7 g/dl (6.3-8.2); Triglycerides 147 mg/dl (30-150); VLDL Cholesterol 29 mg/dL (0-40)
[2024-03-12 17:59] LABS: Direct LDL Cholesterol 77.96 mg/dL (100-129)
[2024-03-12 18:18] LABS: Thyroid Stimulating Hormone 1.81 uIU/mL (0.465-4.68)
== END 2024-03-12 23:59 | disposition home or self-care (01) ==
LOC: LAB.DROPOF 16:16
PROVIDERS: PCP Family Medicine; Visit Provider Family Medicine
DX: R07.0 Pain in throat (principal); E78.5 Hyperlipidemia, unspecified
CPT/HCPCS: 80050; 80053; 80061; 84443; 85025

== ENCOUNTER 2024-03-14 15:18 | Outpatient (CLI) | payer OTHER, SELFPAY ==
--- NOTE | 2024-03-14 15:19 | US_ITS ---
FINAL REPORT CLINICAL HISTORY: throat pain COMPARISON: None FINDINGS: Sonographic images of the thyroid gland were obtained. The right thyroid lobe measures 4.4 cm. in length. The left thyroid lobe measures 4.2 cm. in length. The thyroid isthmus measures 0.3 cm. The echogenicity is normal. Right 8 x 4 mm solid hypoechoic TR 4 nodule. IMPRESSION: Right TR 4 nodule with no follow-up recommended per TI-RADS criteria. Reviewed, Interpreted and Dictated by Irineo Lange III, MD Transcribed by Coral Hernandez Authenticated and [facility]
== END 2024-03-14 23:59 | disposition home or self-care (01) ==
LOC: RAD 15:19
PROVIDERS: PCP Family Medicine; Referring Provider Family Medicine; Visit Provider Family Medicine
DX: R07.0 Pain in throat (principal)
CPT/HCPCS: 76536

== ENCOUNTER 2024-06-12 07:57 | Outpatient (CLI) | payer OTHER, SELFPAY ==
--- NOTE | 2024-06-12 07:58 | MM_ITS ---
PROCEDURE INFORMATION: Exam: MG Bilateral Screening 3D Mammography Exam date and time: 06/12/2024 7:43 AM Age: 39 years old Clinical indication: Screening examination. TECHNIQUE: Imaging protocol: Bilateral Screening tomosynthesis and 2D mammography including computer-aided detection (CAD) when performed. COMPARISON: 1. MG MM DIG SCREENING MAMM BI W/CAD 11/11/2022 2:40 PM 2. MG MM DIG SCREENING MAMM BI W/CAD 10/27/2021 11:00 AM FINDINGS: MAMMOGRAPHY: Breast composition: The breasts are heterogeneously dense, which may obscure small masses. Mass: None. Architectural distortion: None. Calcifications: No suspicious calcifications. Asymmetric density: None. Skin thickening: None. Axillary adenopathy: None. IMPRESSION: No mammographic evidence of malignancy. Annual screening is recommended unless otherwise clinically indicated. ASSESSMENT: BI-RADS Category 1: Negative.
[2024-06-13 12:20] LABS: FSH 9.5 mIU/mL (.); LH 6.7 mIU/mL (.)
== END 2024-06-12 23:59 | disposition home or self-care (01) ==
PROVIDERS: PCP Family Medicine; Visit Provider Nurse Practitioner Obstetrics & Gynecology
DX: Z12.31 Encounter for screening mammogram for malignant neoplasm of breast (principal); N92.6 Irregular menstruation, unspecified
CPT/HCPCS: 36415; 77063; 77067; 83001; 83002

== ENCOUNTER 2024-06-12 10:45 | Outpatient (CLI) | payer OTHER, SELFPAY ==
--- NOTE | 2024-06-12 10:49 | US_ITS ---
PROCEDURE: US TRANSVAGINAL CLINICAL INDICATION: Check IUD Position and breakthrough bleeding COMPARISON: No exams were available for comparison FINDINGS: Transvaginal and transabdominal sonographic images of the pelvis were obtained. UTERUS: 9.1cm x 5.4cmx 4.5cm anteverted with a thin endometrium. There is an IUD within the uterine cavity in the correct position. LEFT OVARY: Not visualized RIGHT OVARY: 1.8 cmx 2.1cmx1.4cm with a volume of 2.8ml. Seen transabdominally. Both ovaries are seen and appear normal. Doppler flow to both ovaries are seen. There is no fluid in the cul-de-sac. IMPRESSION: 1. Anteverted, bulky uterus. The endometrium is thin and not measured. 2. There is an IUD within the uterine cavity in the correct position. 3. Left ovary is not visualized. Right ovary appears normal and is only seen transabdominally. 4. No fluid in the cul-de-sac. Dictated by: George Downing MD 06/12/2024 15:22 George Downing MD in OV 06/12/2024 15:22
== END 2024-06-12 23:59 | disposition home or self-care (01) ==
LOC: LAB 10:46
PROVIDERS: PCP Family Medicine; Visit Provider Nurse Practitioner Obstetrics & Gynecology
DX: N92.1 Excessive and frequent menstruation with irregular cycle (principal); Z97.5 Presence of (intrauterine) contraceptive device; N83.209 Unspecified ovarian cyst, unspecified side
CPT/HCPCS: 76830

== ENCOUNTER 2024-12-31 10:00 | Outpatient (CLI) | payer OTHER, SELFPAY | END 2024-12-31 23:59 | disposition home or self-care (01) | LOC: LAB.DROPOF 01-01 10:37 | PROVIDERS: PCP Nurse Practitioner Family; Visit Provider Nurse Practitioner Family | DX: R39.9 Unspecified symptoms and signs involving the genitourinary system (principal) | CPT/HCPCS: 87086 ==

== ENCOUNTER 2025-02-07 13:44 | Emergency (ER) | payer OTHER, SELFPAY ==
[2025-02-07 13:49] VITALS: BP 171/103; PULSE 79; RESP 18; TEMP 36.5; O2SAT 100; BMI 29.0
--- NOTE | 2025-02-07 13:59 | ED_ITS ---
<Statement entered by Shante Hillman DO - 02/07/25 15:24> I was consulted by the CHANDU, and we discussed the complexity of the problems being addressed. I approved the treatment and management plan for this patient's care in the emergency department, thus performing a substantive portion of the medical decision making. Shante Hillman DO Discharge Plan Disposition Patient Disposition: Home, Self-Care Condition: Good Prescriptions Prescriptions: New ondansetron 4 mg tablet,disintegrating 4 mg PO QID PRN (Reason: nausea and vomiting) Qty: 10 0RF oxycodone 5 mg tablet 5 mg PO Q8H PRN (Reason: pain) Qty: 12 0RF No Action Mirena 20 mcg/24 hr (5 years) intrauterine device 1 dose INTRAUTERI CONT Tremfya 100 mg/mL auto-injector 100 mg SQ Q8W meloxicam 7.5 mg tablet 7.5 mg PO DAILY 30 Days Qty: 30 1RF prednisolone acetate 1 % drops,suspension Eye-Right Patient Comments: INSTILL ONE DROP IN THE RIGHT EYE FOUR TIMES DAILY FOR 3 DAYS --SHAKE WELL BEFORE USE-- Nurtec ODT 75 mg tablet,disintegrating 75 mg PO Q OTHER DAY Qty: 15 4RF fluticasone propionate [Flonase Allergy Relief] 50 mcg/actuation spray,suspension 1 spray intranasal DAILY Qty: 16 2RF Rx Instructions: administer into each nostril sumatriptan succinate [Imitrex] 25 mg tablet See Rx Instructions PO .COMPLEX Qty: 10 0RF Rx Instructions: take 1 tab at onset of headache; if no relief may repeat 1 tab after at least 2 hrs; max = 4 tabs/24 hr PO fluoxetine 20 mg capsule See Rx Instructions .ROUTE .COMPLEX Qty: 30 2RF Dose Instruction: TAKE 1 CAPSULE 1 TIME EACH DAY Rx Instructions: TAKE 1 CAPSULE 1 TIME EACH DAY montelukast [Singulair] 10 mg tablet 10 mg PO QHS 90 Days Qty: 90 0RF simvastatin 10 mg tablet 10 mg PO HS Qty: 90 2RF levocetirizine 5 mg tablet 5 mg PO DAILY 90 Days Qty: 90 0RF amoxicillin 875 mg tablet 875 mg PO BID 10 Days Qty: 20 0RF fluconazole 150 mg tablet 150 mg PO Q3D 0 Days Qty: 2 0RF tamsulosin 0.4 mg capsule 0.4 mg PO DAILY Qty: 30 2RF aspirin 81 MG tablet,chewable 81 mg PO DAILY Referrals Follow up/Referrals: Shayy Youssef APRN [Primary Care Provider, Family Practice] - See instructions Rakesh Thornton MD [Referring, Urology] - See instructions Activity Restrictions/Add. Instructions Additional Instructions/Restrictions: As we discussed strain all your urine continue taking the tamsulosin. I have referred you to urology. Please call to make your appointment. If you have any persistent new or worsening signs or symptoms follow-up with your PCP return to the ER as needed. Clinical Impressions Clinical Impression: Ureterolithiasis Stand Alone Forms Stand Alone Forms: Work/School Release Print Language Print Language: [place] Citizen Discharge ED Provider: Shante Hillman General Adult HPI <LCAYTON Lo - Last Filed: 02/07/25 15:02> General Chief complaint: Urogenital-Female Stated complaint: right back pain, poss kidney stone Time Seen by Provider: 02/07/25 13:59 Mode of Arrival: Ambulatory Source of Information: Patient Description of Symptoms (Recalled from ER Triage Doc. by RN): PT present for evaluation of suspected Kidney Stone. Pain started on upper back, pain has migrated to lower back. PT urinated at 1215 and stated their was sand in her urine. Rates pain 10/10. Toradol IM 60mg injection at 1200. Flomax 0.8mg PO at 1130am. PT has had prior kidney stones. History of Present Illness HPI narrative: Patient presents for evaluation of right flank pain. Patient began having acute right flank pain around 10 AM this morning. She does have a history of previous kidney stones but does not currently see urology. She has not gotten any relief with IM Toradol and tamsulosin. She denies any fever chills hemoptysis hematochezia melena nausea vomiting diarrhea. Patient states her pain is in her right flank does not radiate. She denies any chest pain shortness of breath fever chills hemoptysis hematochezia melena hematemesis but did note hematuria. Related Data Home Medications ?Medication ?Instructions ?Recorded ?Confirmed aspirin 81 mg chewable tablet 81 mg PO DAILY PFO 03/1201/04/25 levonorgestrel (Mirena) 1 dose intrauterine CONT Bir th 05/15/18 01/04/25 control guselkumab 100 mg/mL subcutaneous 100 mg SQ Q8W psoria sis 07/25/23 01/04/25 auto-injector (Tremfya) prednisolone acetate 1 % eye drp Eye-Right 01/04/25 drops,suspension Previous Rx's ?Medication ?Instructions ?Recorded meloxicam 7.5 mg tablet 7.5 mg PO DAILY pain 30 day s #30 12/01/23 tabs fluticasone propionate 50 1 spray intranasal DAILY #16 grams 12/20/23 mcg/actuation nasal spray,suspension (Flonase Allergy Relief) sumatriptan succinate 25 mg tablet See Rx Instructions PO .COMPLEX 06/08/24 (Imitrex) #10 tabs fluoxetine 20 mg capsule See Rx Instructions .Route 0 10/31/24 .COMPLEX #30 caps rimegepant 75 mg disintegrating 75 mg PO Q OTHER DAY # 15 tabs 01/04/25 tablet (Nurtec ODT) montelukast 10 mg tablet 10 mg PO QHS Allergy symptom s 90 01/08/25 (Singulair) days #90 tabs simvastatin 10 mg tablet 10 mg PO HS #90 tabs 5 levocetirizine 5 mg tablet 5 mg PO DAILY 90 days #90 t abs 01/10/25 amoxicillin 875 mg tablet 875 mg PO BID 10 days #20 ta bs 02/04/25 fluconazole 150 mg tablet 150 mg PO Q3D 2 doses #2 tab s 02/06/25 ondansetron 4 mg disintegrating 4 mg PO QID PRN nausea and 02/07/25 tablet vomiting #10 tabs oxycodone 5 mg tablet 5 mg PO Q8H PRN pain #12 tab s 02/07/25 tamsulosin 0.4 mg capsule 0.4 mg PO DAILY #30 caps 01/27 Allergies Allergy/AdvReac Type Severity Reaction Status Date / Time No Known Allergies Allergy Verified 02/07/25 13:30 PFS <CLAYTON Lo - Last Filed: 02/07/25 15:02> PFS Disclaimer: The information contained in this section may have been updated after the patient was seen, as this information can be updated by other users. Medical History (Updated 02/07/25 @ 14:27 by CLAYTNO Lo) Migraines Kidney stones Family history of breast cancer IUD contraception Psoriasis Dysphagia Gastroesophageal reflux Atypical chest pain Left wrist fracture Ribs, multiple fractures Liver laceration Ruptured ovarian cyst Patent foramen ovale Abnormal uterine bleeding Surgical History History of wisdom tooth extraction History of surgery on left wrist History of delivery History of appendectomy History of cholecystectomy H/O oral surgery History of esophagogastroduodenoscopy (EGD) Family History (Updated 01/04/25 @ 11:53 by JAMEEL Thomason) Father Alcoholism Substance abuse Grandfather Hypertension Hyperlipidemia Mitral valve disorder Chronic a-fib Stroke Grandmother Hyperlipidemia Hypertension Mother Cancer Substance abuse Social History Smoking Status: Former smoker second hand exposure: No alcohol intake: never substance use type: denies use current occupational status: employed Travel in the last 8 weeks?: None household members: spouse and family housing: house marital status: current occupational exposures/hazards: No caffeine: Yes Have you lived/traveled outside [place] in past 30 days?: No Contact w/someone who lives/traveled outside US past 30 days?: No Exposure to someone with infectious disease in past 14 days?: No Do you have a fever (greater than 100.4 F or 38 C)?: No Have you tested positive for COVID-19?: No Exposed to someone with COVID-19 in past 14 days?: No Do you have a sore throat?: No Do you have a cough?: No Do you have any weakness?: No Do you have any diarrhea?: No Are you experiencing any unusual bleeding?: No Do you have any muscle aches/pain?: No Do you have any abdominal pain?: Yes Are you experiencing loss of taste or smell?: No Other Medical History Have you received the Flu Vaccine for this season: Yes Have you received the Pneumonia Vaccine: No <CLAYTON Lo - Last Filed: 02/07/25 15:02> ROS Obtained: Yes Systems reviewed as appropriate & no additional complaints except as documented Physical Exam <CLAYTON Lo - Last Filed: 02/07/25 15:02> General General appearance: alert and in no apparent distress Head Head exam: atraumatic and normal inspection Eye Eye exam: Present normal appearance, PERRL and EOMI ENT ENT exam: Present normal exam, normal oropharynx and mucous membranes moist Neck Neck exam: Present normal inspection, full ROM and trachea midline; Absent lymphadenopathy Chest Chest inspection: Present normal inspection and symmetric chest wall rise Respiratory Respiratory exam: Present normal lung sounds bilaterally; Absent accessory muscle use Cardiovascular Cardiovascular exam: Present regular rate, normal rhythm, normal heart sounds, +S1 and +S2 Abdominal Exam Abdominal exam: Present soft and normal bowel sounds; Absent tenderness, guarding or rebound Extremities Exam Extremities exam: Present normal inspection and full ROM Neurological Exam Neurological exam: Present alert, oriented X3 and CN II-XII intact Psychiatric Psychiatric exam: Present normal affect and normal mood Skin Skin exam: Present warm, dry and normal color Lymphatic Lymphatic Findings: no adenopathy Medical Decision Making <CLAYTON Lo - Last Filed: 02/07/25 15:02> Medical Records Medical records reviewed: Yes I reviewed the patient's medical records. Screening: Per USPSTF and CDC recommendations, given the prevalence of disease in our region, it is our hospital?s policy to screen for HIV and viral Hepatitis for all patients aged 18 and over and those with ongoing risk factors. Gagandeep Inquiry Pt receiving controlled substance: No Vital Signs: 02/07/25 13:49 02/07/25 14:09 02/07/25 14:12 Temperature 97.7 F Temperature Source Oral Pulse Rate 78 73 Pulse Rate [Right] 79 Respiratory Rate 18 Blood Pressure 171/102 H 152/95 H Blood Pressure [Right Arm] 171/103 H Blood Pressure Mean [Right Arm] 125 02 Sat by Pulse Oximetry 100 97 97 Oxygen Delivery Method Room Air Room Air Room Air 02/07/25 14:37 Temperature 97.9 F Temperature Source Pulse Rate 70 Pulse Rate [Right] Respiratory Rate 20 Blood Pressure 154/93 H Blood Pressure [Right Arm] Blood Pressure Mean [Right Arm] 02 Sat by Pulse Oximetry Oxygen Delivery Method Room Air Lab Data Lab results reviewed: Yes I reviewed the patient's lab results. Lab Results 02/07/25 14:01: Urine Color Yellow, Urine Appearance Sl cloudy, Urine pH 6.0, Ur Specific [place] >= 1.030, Urine Protein 1+ A, Urine Glucose (UA) Negative, Urine Ketones Trace, Urine Blood 3+ A, Urine Nitrate Negative, Urine Bilirubin Negative, Urine Urobilinogen 0.2, Ur Leukocyte Esterase Negative, Urine RBC 20- 50, Urine WBC None, Ur Squamous Epith Cells Occasional, Urine Bacteria Trace, Urine HCG, Qual Negative 02/07/25 14:03: WBC 8.6, RBC 5.06, Hgb 14.8, Hct 44.4, MCV 87.7, MCH 29.2, MCHC 33.3, RDW 13.3, Plt Count 298, MPV 11.0 H, Neut % (Auto) 81.3 H, Lymph % (Auto) 13.1, [place] % (Auto) 4.6, Eos % (Auto) 0.6, Baso % (Auto) 0.2, Neut # (Auto) 7.0, Lymph # (Auto) 1.1, [place] # (Auto) 0.4, Eos # (Auto) 0.1, Baso # (Auto) 0.0, Sodium 141, Potassium 3.8, Chloride 104, Carbon Dioxide 27, Anion Gap 13.8, BUN 12, Creatinine 0.90, Estimated Creat Clear 109, Estimated GFR 69, Est GFR ( Amer) 83, Glucose 117 H, Calcium 10.2, Total Bilirubin 0.6, AST 28, ALT 31, Alkaline Phosphatase 71, Total Protein 8.6 H D, Albumin 5.1 H, Globulin 3.5 H, Albumin/Globulin Ratio 1.5 02/07/25 14:03 02/07/25 14:03 Orders (Tests/Meds): ED MEDICATIONS Discontinued Medications Generic Name Dose Route Start Last Admin Trade Name Freq PRN Reason Stop Dose Admin Hydromorphone HCl 0.5 mg 02/07/25 14:01 02/07/25 14:06 Hydromorphone 2mg/Ml Syringe IV 02/07/25 14:02 0.5 mg ONCE ONE Administration Sodium Chloride 1,000 mls @ 999 mls/hr 02/07/25 14:01 02/07/25 14:09 Sod Chlor 0.9% 1000ml Bag IV 02/07/25 15:01 999 mls/hr .Q1H1M ONE Administration Ondansetron HCl 4 mg 02/07/25 14:01 02/07/25 14:06 Ondansetron 4mg/2ml Vial IV 02/07/25 14:02 4 mg ONCE ONE Administration ORDERS Category Date Time Status CT abdomen pelvis wo con Stat Cat Scan 02/07/25 14:01 Completed CBC w/Auto Diff [Complete Blood Count Auto Diff] Stat Lab 02/07/25 14:03 Completed CMP [Comprehensive Metabolic Panel] Stat Lab 02/07/25 14:03 Completed Urinalysis and Microscopic Stat Lab 02/07/25 14:01 Completed Urine , HCG Qual. Stat Lab 02/07/25 14:01 Completed Medical Decision Narrative: In summary patient is a 39-year-old female who presents to the emergency department for evaluation of right flank pain. Patient is initially hypertensive with a blood pressure 171/103 pulse 79 respiratory rate 18 upon arrival, temperature 97.7. Physical exam is remarkable for right flank tenderness to percussion but no abdominal tenderness no rebound or guarding no rigidity. Bowel sounds normal active.. Differential diagnosis includes UTI versus pyelonephritis versus kidney stone etc. Initial workup will be conducted with hematologic labs urinalysis CT scan abdomen pelvis. Initial interventions include crystalloid bolus Zofran and Dilaudid this patient's already had IM Toradol and tamsulosin. Initial workup reviewed by me shows that her hematologic labs are nonactionable with normal white count no shift creatinine is normal urinalysis is positive for protein 3+ blood microscopic exam shows no bacteria in my informal interpretation of her CT scan abdomen pelvis shows a UVJ stone on the right prior to radiology read. Please see final read for formal interpretation. Upon repeat evaluation patient had complete resolution of her pain after initial intervention. Given this patient is appropriate for discharge with instructions to continue to strain all urine prescription was sent for Zofran and opiates and referral to urology for ongoing follow-up and management. Patient given strict return precautions. <Shante Hillman, DO - Last Filed: 02/07/25 15:24> Gagandeep Inquiry Pt receiving controlled substance: Yes Gagandeep was queried for this patient: Yes Risks and benefits of using a controlled substance: were discussed with pt by me Vital Signs: 02/07/25 13:49 02/07/25 14:09 02/07/25 14:12 Temperature 97.7 F Temperature Source Oral Pulse Rate 78 73 Pulse Rate [Right] 79 Respiratory Rate 18 Blood Pressure 171/102 H 152/95 H Blood Pressure [Right Arm] 171/103 H Blood Pressure Mean [Right Arm] 125 02 Sat by Pulse Oximetry 100 97 97 Oxygen Delivery Method Room Air Room Air Room Air 02/07/25 14:37 Temperature 97.9 F Temperature Source Pulse Rate 70 Pulse Rate [Right] Respiratory Rate 20 Blood Pressure 154/93 H Blood Pressure [Right Arm] Blood Pressure Mean [Right Arm] 02 Sat by Pulse Oximetry Oxygen Delivery Method Room Air Lab Data Lab Results 02/07/25 14:01: Urine Color Yellow, Urine Appearance Sl cloudy, Urine pH 6.0, Ur Specific [place] >= 1.030, Urine Protein 1+ A, Urine Glucose (UA) Negative, Urine Ketones Trace, Urine Blood 3+ A, Urine Nitrate Negative, Urine Bilirubin Negative, Urine Urobilinogen 0.2, Ur Leukocyte Esterase Negative, Urine RBC 20- 50, Urine WBC None, Ur Squamous Epith Cells Occasional, Urine Bacteria Trace, Urine HCG, Qual Negative 02/07/25 14:03: WBC 8.6, RBC 5.06, Hgb 14.8, Hct 44.4, MCV 87.7, MCH 29.2, MCHC 33.3, RDW 13.3, Plt Count 298, MPV 11.0 H, Neut % (Auto) 81.3 H, Lymph % (Auto) 13.1, [place] % (Auto) 4.6, Eos % (Auto) 0.6, Baso % (Auto) 0.2, Neut # (Auto) 7.0, Lymph # (Auto) 1.1, [place] # (Auto) 0.4, Eos # (Auto) 0.1, Baso # (Auto) 0.0, Sodium 141, Potassium 3.8, Chloride 104, Carbon Dioxide 27, Anion Gap 13.8, BUN 12, Creatinine 0.90, Estimated Creat Clear 109, Estimated GFR 69, Est GFR ( Amer) 83, Glucose 117 H, Calcium 10.2, Total Bilirubin 0.6, AST 28, ALT 31, Alkaline Phosphatase 71, Total Protein 8.6 H D, Albumin 5.1 H, Globulin 3.5 H, Albumin/Globulin Ratio 1.5 Orders (Tests/Meds): ED MEDICATIONS Discontinued Medications Generic Name Dose Route Start Last Admin Trade Name Freq PRN Reason Stop Dose Admin Hydromorphone HCl 0.5 mg 02/07/25 14:01 02/07/25 14:06 Hydromorphone 2mg/Ml Syringe IV 02/07/25 14:02 0.5 mg ONCE ONE Administration Sodium Chloride 1,000 mls @ 999 mls/hr 02/07/25 14:01 02/07/25 14:09 Sod Chlor 0.9% 1000ml Bag IV 02/07/25 15:01 999 mls/hr .Q1H1M ONE Administration Ondansetron HCl 4 mg 02/07/25 14:01 02/07/25 14:06 Ondansetron 4mg/2ml Vial IV 02/07/25 14:02 4 mg ONCE ONE Administration ORDERS Category Date Time Status CT abdomen pelvis wo con Stat Cat Scan 02/07/25 14:01 Completed CBC w/Auto Diff [Complete Blood Count Auto Diff] Stat Lab 02/07/25 14:03 Completed CMP [Comprehensive Metabolic Panel] Stat Lab 02/07/25 14:03 Completed Urinalysis and Microscopic Stat Lab 02/07/25 14:01 Completed Urine , HCG Qual. Stat Lab 02/07/25 14:01 Completed Critical Care <CLAYTON Lo - Last Filed: 02/07/25 15:02> Critical Care Time Critical Care Time: No
--- NOTE | 2025-02-07 14:01 | CT_ITS ---
FINAL REPORT TECHNIQUE: Thin section axial images were obtained from the lung bases to the pubic symphysis without IV contrast. Coronal and sagittal reconstruction images were obtained from the axial data. Exam was performed using dose reduction technique. This study was performed with techniques to keep radiation doses as low as reasonably achievable (ALARA). Individualized dose reduction techniques using automated exposure control or adjustment of mA and/or kV according to the patient's size were employed. CLINICAL HISTORY: Acute right flank pain, history of stones COMPARISON: None FINDINGS: Calcified granulomas are present in the right lung base. There is right hydronephrosis and hydroureter to the level of an obstructing 4 mm right UVJ stone. There are several nonobstructing left renal stones, the largest measuring 7 mm in size. The gallbladder has been surgically resected. The remaining unenhanced solid abdominal organs are unremarkable. There is no evidence of small bowel obstruction. GI tract is without acute abnormality. An IUD is present in the pelvis. There are physiologic changes in the ovaries. There is no lymphadenopathy or ascites. No acute osseous abnormality is identified. IMPRESSION: Right hydronephrosis and hydroureter to the level of an obstructing 4 mm right UVJ stone. Several nonobstructing left renal stones are noted as well, measuring up to 7 mm in size. Reviewed, Interpreted and Dictated by Eusebia Sol MD Transcribed by Kriss Garrison Authenticated and [facility]
[2025-02-07 14:04] LABS: Microscopic, Urine URINE MICROSCOPIC (MICROSCOPIC)
[2025-02-07] MEDS: HYDROMORPHONE 2MG/ML SYRINGE 0.5 MG IV (14:06)
[2025-02-07] MEDS: ONDANSETRON 4MG/2ML VIAL 4 MG IV (14:06)
[2025-02-07 14:08] LABS: Appearance,Urine SL CLOUDY (Clear); Bilirubin,Urine Negative (Negative); Blood, Urine 3+ (Negative); Color,Urine YELLOW (Yellow); Glucose,Urine (UA) Negative (Negative); Ketones,Urine TRACE (Negative); Leukocyte Esterase,Urine Negative (Negative); Nitrate,Urine Negative (Negative); Protein,Urine 1+ (Negative); Specific Gravity, Urine >= 1.030 (1.005-1.030); Urobilinogen,Urine 0.2 EU/dl (0.2)
[2025-02-07 14:09] VITALS: BP 171/102; PULSE 78; O2SAT 97
[2025-02-07 14:09] LABS: Urine Pregnancy, HCG Qual. Negative (Negative)
[2025-02-07] MEDS: 0.9 % SODIUM CHLORIDE 1000ML 1,000 ML 999 ML IV (14:09)
[2025-02-07 14:12] VITALS: BP 152/95; PULSE 73; O2SAT 97
[2025-02-07 14:14] LABS: Basophils % 0.2 % (0.1-2.0); Eosinophils # 0.1 Kmm3 (0.0-0.4); Eosinophils % 0.6 % (0.1-12.0); Hematocrit 44.4 % (37.0-47.0); Hemoglobin 14.8 g/dL (12.2-16.2); Immature Granulocytes # 0.02 10^3uL; Immature Granulocytes % 0.2 %; Lymphocytes # 1.1 K/mm3 (0.7-4.5); Lymphocytes % 13.1 % (10-50); Mean Corpuscular HGB Conc 33.3 g/dL (31.8-35.4); Mean Corpuscular Hemoglobin 29.2 pg (27.0-31.2); Mean Corpuscular Volume 87.7 fl (81-99); Monocytes # 0.4 K/mm3 (0.1-1.0); Monocytes % 4.6 % (1.7-9.3); Neutrophils % 81.3 % (37.0-80.0); Nucleated Red Blood Cells # 0 10^3/uL; Nucleated Red Blood Cells % 0 %; Platelet Count 298 K/mm3 (142-424); Red Blood Count 5.06 M/mm3 (4.20-5.40); Red Cell Distribution Width 13.3 % (11.5-17.5); Red Cell Distribution Width-SD 42.7 fL; White Blood Count 8.6 K/mm3 (4.8-10.8)
--- NOTE | 2025-02-07 14:15 | PC.NURSE ---
pt transported to CT via wheelchair
[2025-02-07 14:21] LABS: Alanine Aminotransferase 31 U/L (12-78); Albumin Level 5.1 g/dl (3.5-5.0); Albumin/Globulin Ratio 1.5 (1.1-1.8); Alkaline Phosphatase 71 U/L (38-126); Anion Gap 13.8 mEq/L (5-15); Aspartate Amino Transferase 28 U/L (14-36); Bilirubin,Total 0.6 mg/dl (0.2-1.3); Blood Urea Nitrogen 12 mg/dl (7-17); Calcium 10.2 mg/dl (8.4-10.2); Carbon Dioxide 27 mmol/L (22.0-30.0); Chloride 104 mmol/L (98-107); Creatinine Clearance Estimated 109 mL/min (50-200); Estimated Glomerular Filt Rate 69 ml/min (>60); GFR (African American) 83 ML/MIN (>60); Globulin 3.5 g/dL (1.3-3.2); Glucose 117 mg/dl (74-100); Potassium 3.8 mmoL/L (3.5-5.1); Sodium 141 mmol/L (136-145); Total Protein,Serum 8.6 g/dl (6.3-8.2)
[2025-02-07 14:26] LABS: Squamous Epithelial Cell,Urine Occasional #/hpf (0-5)
[2025-02-07 14:27] LABS: Bacteria,Urine Trace /lpf; RBC,Urine 20-50 #/hpf (0-3)
[2025-02-07 14:37] VITALS: BP 154/93; PULSE 70; RESP 20; TEMP 36.6; O2SAT 97
== END 2025-02-07 14:42 | disposition home or self-care (01) ==
PROVIDERS: Physician Assistant; Emergency Provider Emergency Medicine; PCP Nurse Practitioner Family
DX: N13.0 Hydronephrosis with ureteropelvic junction obstruction (principal); N13.4 Hydroureter; R10.31 Right lower quadrant pain
CPT/HCPCS: 74176; 80053; 81001; 81025; 85025; 96361; 96374; 96375; 99285; J1171; J2405; J7030